=== PATIENT | female | born 1950 | race Caucasian/White ===

== ENCOUNTER 2021-08-07 06:44 | Outpatient (REF) | payer MEDICARE, SELFPAY ==
[2021-08-07 11:29] LABS: MANUAL DIFF FLAG NO
[2021-08-07 11:38] LABS: Basophils Percent Auto 0.5 % (0-2); Eosinophils Absolute Auto 0.3 X10*3/uL (0.0-0.4); Eosinophils Percent Auto 3.4 % (0-4); Hematocrit 42.3 % (37.0-47.0); Hemoglobin 13.7 g/dl (12.0-16.0); Imm Gran Abs Auto 0.04 X10*3/uL (0.00-0.03); Imm Gran Pct Auto 0.5 % (0.0-0.4); Lymphocytes Absolute Auto 1.6 X10*3/uL (1.2-4.9); Lymphocytes Percent Auto 18.2 % (20-40); Mean Corpuscular HGB Conc 32.4 g/dl (31.0-35.0); Mean Corpuscular Volume 92.8 fL (80.0-98.0); Mean Platelet Volume 10.1 fL (9.4-12.3); Monocytes Absolute Auto 0.9 X10*3/uL (0.1-1.2); Monocytes Percent Auto 10.2 % (2-11); Neutrophils Percent Auto 67.2 % (45-73); Platelet Count 319 X10*3/uL (160-400); Red Blood Count 4.56 X10*6/uL (4.20-5.50); White Blood Count 8.9 X10*3/uL (4.8-10.8)
[2021-08-07 11:54] LABS: Alanine Aminotransferase 17 U/L (0-31); Anion Gap 11 (12-20); Aspartate Amino Transferase 17 U/L (5-31); Blood Urea Nitrogen 13 mg/dL (9-16); Calcium 9.6 mg/dL (8.4-10.2); Carbon Dioxide 29 mmol/L (22-29); Chloride 102 mmol/L (96-108); Cholesterol 202 mg/dL; Estimated Glomerular Filt Rate > 60; Glucose Fasting 98 mg/dL (60-99); HDL Cholesterol 45 mg/dL; LDL Cholesterol Calculated 127 mg/dl; Potassium 4.2 mmol/L (3.3-5.1); Sodium 138 mmol/L (135-145); Triglycerides 154 mg/dL
[2021-08-07 12:17] LABS: Vitamin D 25-OH Total 34.7 ng/mL (>30)
[2021-08-07 12:27] LABS: Folate 10.4 ng/mL (> or = 4.0); Vitamin B12 718 pg/mL (200-900)
== END 2021-08-07 06:45 | disposition home or self-care (01) ==
LOC: HO.HMGCLDS 06:44
PROVIDERS: Visit Provider Internal Medicine
DX: Z00.01 Encounter for general adult medical examination with abnormal findings (principal); R53.83 Other fatigue; Z78.0 Asymptomatic menopausal state
CPT/HCPCS: 36415; 80048; 80061; 82306; 82607; 82746; 84443; 84450; 84460; 85025

== ENCOUNTER 2022-01-28 16:31 | Outpatient (REF) | payer MEDICARE, SELFPAY ==
[2022-01-28 17:16] LABS: Anion Gap 18 (12-20); Blood Urea Nitrogen 15 mg/dL (9-16); Calcium 8.8 mg/dL (8.4-10.2); Carbon Dioxide 23 mmol/L (22-29); Chloride 101 mmol/L (96-108); Estimated Glomerular Filt Rate > 60; Glucose Random 77 mg/dL (60-115); Potassium 4.5 mmol/L (3.3-5.1); Sodium 137 mmol/L (135-145)
== END 2022-01-28 16:32 | disposition home or self-care (01) ==
LOC: HO.LNP 16:31
PROVIDERS: Visit Provider Internal Medicine
DX: E87.1 Hypo-osmolality and hyponatremia (principal)
CPT/HCPCS: 80048

== ENCOUNTER 2022-05-28 13:36 | Outpatient (REF) | payer MEDICARE, SELFPAY ==
[2022-05-28 16:21] LABS: MANUAL DIFF FLAG NO
[2022-05-28 16:23] LABS: Basophils Percent Auto 0.3 % (0-2); Eosinophils Absolute Auto 0.2 X10*3/uL (0.0-0.4); Eosinophils Percent Auto 1.9 % (0-4); Hematocrit 41.5 % (37.0-47.0); Hemoglobin 13.5 g/dl (12.0-16.0); Imm Gran Abs Auto 0.04 X10*3/uL (0.00-0.03); Imm Gran Pct Auto 0.4 % (0.0-0.4); Lymphocytes Absolute Auto 2.7 X10*3/uL (1.2-4.9); Lymphocytes Percent Auto 26.8 % (20-40); Mean Corpuscular HGB Conc 32.5 g/dl (31.0-35.0); Mean Corpuscular Hemoglobin 29.2 pg (27.0-33.0); Mean Corpuscular Volume 89.6 fL (80.0-98.0); Monocytes Absolute Auto 1.3 X10*3/uL (0.1-1.2); Monocytes Percent Auto 12.4 % (2-11); Neutrophils Absolute Auto 5.9 x10*3/uL (2.0-8.3); Neutrophils Percent Auto 58.2 % (45-73); Platelet Count 421 X10*3/uL (160-400); Red Blood Count 4.63 X10*6/uL (4.20-5.50); Red Cell Distribution Width 13.3 % (11.0-16.0); White Blood Count 10.1 X10*3/uL (4.8-10.8)
== END 2022-05-28 13:37 | disposition home or self-care (01) ==
LOC: HO.HMGCX 13:36
PROVIDERS: PCP Internal Medicine; Visit Provider Internal Medicine
DX: R05.3 Chronic cough (principal)
CPT/HCPCS: 36415; 71046; 85025

== ENCOUNTER 2022-08-10 12:18 | Outpatient (AMB) | payer MEDICARE, SELFPAY ==
--- NOTE | 2022-08-10 12:32 | AM.OFFVISMDC ---
Intake Vital Signs 08/10/22 12:34 Height 5 ft 5 in Weight 187 lb BMI 31.1 BP 124/80 Blood Pressure Location Lt brachial Position Sitting Pulse 86 Pulse Source Pulse Oximeter Pulse Oximetry (%) 97 Oxygen Delivery Method Room Air Intake Visit Reasons: ARIELLE G0438 04/06/2016 Intake Note: Pt is here today for her AWV Allergies No Known Allergies Allergy (Verified 08/10/22 12:34) Medication List - Last Reconciled 08/10/22 by Kaley Vasquez MD benzonatate 200 mg PO BID PRN bupropion HCl 75 mg PO QAM cholecalciferol (vitamin D3) 50 mcg PO DAILY fluticasone propionate 50 mcg/actuation 1 spray intranasal BID levocetirizine 5 mg PO QPM PRN lorazepam 0.5 mg PO DAILY PRN melatonin 10 mg PO BEDTIME PRN venlafaxine ER 75 mg PO DAILY Patient : No Do you need a note to return to daycare/school/sports/work: No HPI AWV G0438 04/06/2016 HPI Details IPPE/AWV ? year old presents for her ? Annual Wellness Visit, initial visit.? Medical / Social History Reviewed? Past Medical History ?Yes . ? [place] of Care / Care Team list updated ?Yes . ? Surgical/Hospitalization History ?Yes . ? Current Medications (including OTC and supplements) ?Yes . ? Family History ?Yes . ? Tobacco Control form ?Yes . ? AUDIT-C (Alcohol use) form ?Yes . ? Illicit drug use in Social History ?Yes . ? Current diagnosis of depression? ?No ? Appropriate PHQ2/PHQ9 completed ?Yes . ? Data entered by ?Solar Lab Technician and reviewed by provider ? Fall Risk ? Fall History? Have you had any falls with injury in the past year? ?No . ? Have you had two or more falls in the past year? ?No . ? Fall Risk Assessment: ?No falls in the past year . ? HRA filled out by the patient, reviewed by Provider and scanned. ? IPPE/AWV ? Balance? Romberg ?Yes . ? Tandem walk ?Yes . ? Walk and Turn ?Yes . ? Rise from sit to stand ?Yes . ?Vision? Corrective lens ?Yes ? Vision screen ? Up-to-date, has an appointment Dr. Bledsoe 10/14/2020 for her vision screening and glaucoma screening ?Hearing? Whisper test ?pass . ?Written Plan?Completed. See Patient Documents.? PFSH Medical History Anxiety and depression DUB (dysfunctional uterine bleeding) Mild cognitive impairment Psychogenic polydipsia Smoker unmotivated to quit Surgical History History of carpal tunnel release of both wrists History of partial hysterectomy Family History (Updated 08/10/22 @ 12:51 by Maria Victoria Myers CMA) Other Adopted Social History Housing: Condominium Patient Tobacco Use Status: Former Tobacco user Cigarette Packs Per Day: 0.5 Cigarettes Per Day: 10 e-Cigarette/Vaping Use: Never Used Patient : No service: No Current occupational status: retired Cognitive needs: No Hearing needs: No Vision needs: Yes Questionnaire Medicare Wellness Checkup [age] What gender do you identify with?: female During the past 4 weeks, how much have you been bothered by emotional problems such as feeling anxious, depressed, irritable, sad or downhearted, and blue?: not at all During the past 4 weeks, has your physical & emotional health limited your social activities with family, friends, neighbors, or groups?: not at all During the past 4 weeks, how much bodily pain have you generally had?: mild pain During the past 4 weeks, was someone available to help you if you needed & wanted help?: no, not at all During the past 4 weeks, what was the hardest physical activity you could do for at least 2 minutes?: moderate Can you get to places out of walking distance without help? (For eg., can you travel alone on buses, taxis or drive your car?): Yes Can you go shopping for groceries or clothes without someone's help?: Yes Can you prepare your own meals?: Yes Can you do your housework without help?: Yes Because of any health problems, do you need the help of another person with your personal care needs such as eating, bathing, dressing or getting around the house?: No Can you handle your own money without help?: Yes During the past 4 weeks, how would you rate your health in general?: good During the past 4 weeks how have things been going for you?: pretty well Are you having difficulties driving your car?: no Do you always fasten your seat belt when you are in a car?: yes, usually During past 4 weeks, have you been bothered by the following: never: Teeth or denture problems? and Problems using the telephone?, seldom: Falling or dizzy when standing up, Sexual problems? and Trouble eating well? and sometimes: Tiredness or fatigue? Have you fallen 2 or more times in the past year?: No Are you afraid of falling?: No Are you a smoker?: yes, and I might quit During the past 4 weeks, how many drinks of wine, beer, or other alcoholic beverages did you have?: no alcohol at all Do you exercise for about 20 minutes 3 or more times a week?: no, I usually do not exercise this much Have you been given information to help with the following?: yes: Keeping track of your medications? and no: Hazards in your house that might hurt you? How often do you have trouble taking medicines the way you have been told to take them?: I always take medicine as prescribed How confident are you that you can control & manage most of your health problems?: very confident What is your race?: White Activity of Daily Living Bathing - sponge bath, tub bath or shower: receives no assistance (gets in/out by self, if usual bathing means Dressing - getting clothes from closets & drawers, including inner/outer garments & fasteners.: gets clothes & gets completely dressed without help Toileting - going to the 'toilet room' for urine/bowel elimination & cleaning self/arranging clothes: goes to toilet room, cleans self, arranges clothes without help Transfer: moves in & out of bed and chair without help (may use support object) Continence: has occasional 'accidents' Feeding: feeds self without help Total Score: 0 Information obtained from: patient Using telephone: independent Traveling: independent Shopping: independent Preparing meals: independent Housework: independent Taking medicine: independent Managing money: independent PHQ-9 Over the last 2 weeks, how often have you been bothered by any of the following problems? 1. Little interest or pleasure in doing things: not at all 2. Feeling down, depressed, or hopeless: not at all 3. Trouble falling or staying asleep, or sleeping too much: not at all 4. Feeling tired or having little energy: not at all 5. Poor appetite or overeating: not at all 6. Feeling bad about yourself - or that you are a failure or have let yourself or your family down: not at all 7. Trouble concentrating on things, such as reading the newspaper or watching television: not at all 8. Moving or speaking so slowly that other people could have noticed. Or the opposite - being so fidgety or restless that you have been moving around a lot more than usual: not at all 9. Thoughts that you would be better off or of hurting yourself in some way: not at all Total score: 0 Depression Screening Interpretation: Negative 93415 - PHQ-9 Billing: Yes Source: Developed by Drs. Lance Cox, Teena Juárez, Kwan Grove and colleagues, with an educational susana from [employer]. Physical Exam Vital Signs: Last Vital Signs Pulse 86 08/10/22 12:34 BP 124/80 08/10/22 12:34 Pulse Ox 97 08/10/22 12:34 Oxygen Delivery Method Room Air 08/10/22 12:34 BMI result Body Mass Index 31.1 Assessment & Plan Assessment & Plan (1) Anxiety and depression: Code(s): F41.9 - Anxiety disorder, unspecified; F32.A - Depression, unspecified (2) Encounter for annual wellness visit (AWV) in Medicare patient: Code(s): Z00.00 - Encounter for general adult medical examination without abnormal findings (3) Advanced directives, counseling/discussion: Code(s): Z71.89 - Other specified counseling Quality Reporting (2019) Depression/Bipolar (159/160/161/177) PHQ-9: Total score: 0 Coding Level of Care Code Medicare First (G0438) Diagnoses Anxiety and depression F41.9; F32.A Encounter for annual wellness visit (AWV) in Medicare patient Z00.00 Advanced directives, counseling/discussion Z71.89
[2022-08-10 12:34] VITALS: BP 124/80; PULSE 86; O2SAT 97; BMI 31.1
[2022-08-10 13:57] VITALS: BMI 31.1
--- NOTE | 2022-08-10 13:57 | AM.OFFVISMDC ---
Intake Vital Signs 08/10/22 12:34 08/10/22 13:57 Height 5 ft 5 in Weight 187 lb BMI 31.1 31.1 BP 124/80 Blood Pressure Location Lt brachial Position Sitting Pulse 86 Pulse Source Pulse Oximeter Pulse Oximetry (%) 97 Oxygen Delivery Method Room Air Intake Visit Reasons: ARIELLE G0438 04/06/2016 Allergies No Known Allergies Allergy (Verified 02/10/23 16:37) Medication List - Last Reconciled 08/10/22 by Kaley Vasquez MD benzonatate 200 mg PO BID PRN bupropion HCl 75 mg PO QAM cholecalciferol (vitamin D3) 50 mcg PO DAILY fluticasone propionate 50 mcg/actuation 1 spray intranasal BID levocetirizine 5 mg PO QPM PRN lorazepam 0.5 mg PO DAILY PRN melatonin 10 mg PO BEDTIME PRN venlafaxine ER 75 mg PO DAILY HPI AWV G0438 04/06/2016 HPI Details AWV ?72 year old lady with history of anxiety depression, followed by Maycol Colon for presents for her ? Annual Wellness Visit, initial visit.? She is overdue for her screening mammogram, last done 01/12/2021, states that he does have an appointment for her screening mammogram tomorrow at the [facility]. She also states that she has had several bone density scan done in [place], will request copies of results. She has never had a screening colonoscopy, done not interested in getting the procedure but is willing to do the Cologuard testing. She will check with her insurance to see if covered and will let me know. She is up-to-date with her fasting lipid panel check, done 08/07/2021 with normal findings and had a normal fasting blood sugar done 01/28/2022. She has had her to COVID vaccine but does not want to get a COVID booster, up-to-date with her flu shot, had her Prevnar 13 but had her Pneumovax 23 before she was 65 years old, due for Prevnar 20. She has had the old shingles vaccine, reminded to get the new Shingrix vaccine given at the pharmacy. ? Medical / Social History Reviewed? Past Medical History ?Yes . ? [place] of Care / Care Team list updated ?Yes . ? Surgical/Hospitalization History ?Yes . ? Current Medications (including OTC and supplements) ?Yes . ? Family History ?Yes . ? Tobacco Control form ?Yes . ? AUDIT-C (Alcohol use) form ?Yes . ? Illicit drug use in Social History ?Yes . ? Current diagnosis of depression? ?yes, followed by Maycol Colon ? Appropriate PHQ2/PHQ9 completed ?Yes . ? Data entered by ?Stonecutter Apprentice Hand and reviewed by provider ? Fall Risk ? Fall History? Have you had any falls with injury in the past year? ?No . ? Have you had two or more falls in the past year? ?No . ? Fall Risk Assessment: ?No falls in the past year . ? HRA filled out by the patient, reviewed by Provider and scanned. ?? AWV ? Balance? Romberg ?Yes . ? Tandem walk ?Yes . ? Walk and Turn ?Yes . ? Rise from sit to stand ?Yes . ?Vision? Corrective lens ?Yes ? Vision screen ? 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 ?Hearing? Whisper test ?pass . ?Written Plan?Completed. See Patient Documents.? [facility] Medical History History of COVID-19 Mild cognitive impairment Psychogenic polydipsia Anxiety and depression Smoker unmotivated to quit DUB (dysfunctional uterine bleeding) Surgical History History of carpal tunnel release of both wrists History of partial hysterectomy Family History Other Adopted Social History Housing: Condominium Patient Tobacco Use Status: Former Tobacco user Cigarette Packs Per Day: 0.5 Cigarettes Per Day: 10 e-Cigarette/Vaping Use: Never Used service: No Current occupational status: retired Cognitive needs: No Hearing needs: No Vision needs: Yes Questionnaire Mini Mental State Exam (MMSE) Orientation What is the (year) (season) (date) (day) (month)?: year, season (winter), date (08/10/22), day and month (august) Where are we (state) (county) (town or city) (hospital) (floor)?: state ([place]), county ([place]), town or city ([place]) and hospital/clinic ([facility]) Score Score: 9 Activity of Daily Living Bathing - sponge bath, tub bath or shower: receives no assistance (gets in/out by self, if usual bathing means Dressing - getting clothes from closets & drawers, including inner/outer garments & fasteners.: gets clothes & gets completely dressed without help Toileting - going to the 'toilet room' for urine/bowel elimination & cleaning self/arranging clothes: goes to toilet room, cleans self, arranges clothes without help Transfer: moves in & out of bed and chair without help (may use support object) Continence: has occasional 'accidents' Feeding: feeds self without help Total Score: 0 Information obtained from: patient Using telephone: independent Traveling: independent Shopping: independent Preparing meals: independent Housework: independent Taking medicine: independent Managing money: independent PHQ-9 Over the last 2 weeks, how often have you been bothered by any of the following problems? 1. Little interest or pleasure in doing things: not at all 2. Feeling down, depressed, or hopeless: not at all 3. Trouble falling or staying asleep, or sleeping too much: not at all 4. Feeling tired or having little energy: not at all 5. Poor appetite or overeating: not at all 6. Feeling bad about yourself - or that you are a failure or have let yourself or your family down: not at all 7. Trouble concentrating on things, such as reading the newspaper or watching television: not at all 8. Moving or speaking so slowly that other people could have noticed. Or the opposite - being so fidgety or restless that you have been moving around a lot more than usual: not at all 9. Thoughts that you would be better off or of hurting yourself in some way: not at all Total score: 0 Depression Screening Interpretation: Negative 27517 - PHQ-9 Billing: Yes Source: Developed by Drs. Lance Cox, Teena Juárez, [place]wan [place] and colleagues, with an educational susana from [employer]. Physical Exam Vital Signs: Last Vital Signs Pulse 86 08/10/22 12:34 BP 124/80 08/10/22 12:34 Pulse Ox 97 08/10/22 12:34 Oxygen Delivery Method Room Air 08/10/22 12:34 BMI result Body Mass Index 31.1 Immunizations pneumoc 20-sascha conj-dip cr(PF) 0.5 mL IM syringe Performing Provider: Kaley Vasquez MD Performing [facility] [facility] Administered by: Maria Victoria Myers CMA on 08/10/22 13:57 Dose Route Admin Location Dispensed Lot Number Expiration Date NDC Director Funeral 0.5 mL IM Right Deltoid 0.5 mL [id number] 10/04/23 6345-1410-12 [employer] [place]/[employer]IG [employer] VIS Given Date VIS Provided VIS Publication Date 08/10/22 Single Vaccine 21 Eligibility Eligibility Date Funding Source Not VFC Eligible 08/10/22 Private Assessment & Plan Assessment & Plan (1) Medicare annual wellness visit, initial: Code(s): Z00.00 - Encounter for general adult medical examination without abnormal findings Plan: Medical wellness checklist reviewed, updated and discussed with patient, copy given Prevnar 20 given today, reminded to get her COVID booster and her yearly flu shot later this year as well as her shingles vaccination. (2) Anxiety and depression: Code(s): F41.9 - Anxiety disorder, unspecified; F32.A - Depression, unspecified Plan: Currently on venlafaxine ER, followed by Maycol Colon Orders: Orders Pneumococcal 20 Immunization 08/10/22 Z23 - Encounter for immunization Quality Reporting (2019) Depression/Bipolar (159/160/161/177) PHQ-9: Total score: 0 Coding Level of Care Code Medicare First (G0438) Diagnoses Medicare annual wellness visit, initial Z00.00 Anxiety and depression F41.9; F32.A CPT Codes Advance Care Planning - Time spent: 16-45 minutes ([id number]) Advance Care Planning Advance Care Planning discussion: Completed/Scanned Date of discussion: 08/10/22 Who was present: Patient Forms completed: MOLST Time spent: 16-45 minutes Actual minutes spent: 16
== END 2022-08-10 13:56 | disposition home or self-care (01) ==
LOC: HO.HMGC 12:18
PROVIDERS: PCP Internal Medicine; Visit Provider Internal Medicine
DX: Z00.00 Encounter for general adult medical examination without abnormal findings (principal); F41.9 Anxiety disorder, unspecified; F32.A Depression, unspecified; Z23 Encounter for immunization
CPT/HCPCS: 90471; 90677; 99497; G0438

== ENCOUNTER 2023-02-10 15:43 | Outpatient (AMB) | payer MEDICARE, SELFPAY ==
--- NOTE | 2023-02-10 15:56 | A.OFFPC_ITS ---
Vital Signs 02/10/23 16:01 Height 5 ft 5 in Weight 185 lb BMI 30.8 BP 110/64 Blood Pressure Location Rt brachial Position Sitting Pulse 99 Pulse Source Pulse Oximeter Pulse Oximetry (%) 95 Oxygen Delivery Method Room Air Intake Visit Reasons: flem coming up while eating/going on 2+ months Intake Note: Pt is here today c/o producing phelgm while eating Allergies No Known Allergies Allergy (Verified 02/10/23 16:37) Medication List - Last Reconciled 02/10/23 by Kaley Vasquez MD cholecalciferol (vitamin D3) 50 mcg PO DAILY venlafaxine ER 75 mg PO DAILY Tobacco use date assessed: 02/10/23 Last assessed Fall Risk: 02/10/23 Dental Screening Dental Screen Date: 02/10/23 HPI flem coming up while eating/going on 2+ months HPI Details 72-year-old lady with anxiety depression currently on venlafaxine, sees Psychiatry, stable and controlled on present medication, here today complaining of excessive phlegm buildup. Patient states that she always has to expect rate clear phlegm, worse after eating and in the morning when she wakes up, present now for the last 2 weeks. Denies any cough, no nasal congestion, no postnasal drainage or rhinorrhea, no heartburn symptoms. [facility] Medical History History of COVID-19 Mild cognitive impairment Psychogenic polydipsia Anxiety and depression Smoker unmotivated to quit DUB (dysfunctional uterine bleeding) Surgical History History of carpal tunnel release of both wrists History of partial hysterectomy Family History Other Adopted Social History Housing: Condominium Patient Tobacco Use Status: Former Tobacco user Cigarette Packs Per Day: 0.5 Cigarettes Per Day: 10 e-Cigarette/Vaping Use: Never Used service: No Current occupational status: retired Cognitive needs: No Hearing needs: No Vision needs: Yes Questionnaire PHQ-9 Over the last 2 weeks, how often have you been bothered by any of the following problems? 1. Little interest or pleasure in doing things: not at all 2. Feeling down, depressed, or hopeless: not at all 3. Trouble falling or staying asleep, or sleeping too much: not at all 4. Feeling tired or having little energy: not at all 5. Poor appetite or overeating: not at all 6. Feeling bad about yourself - or that you are a failure or have let yourself or your family down: not at all 7. Trouble concentrating on things, such as reading the newspaper or watching television: not at all 8. Moving or speaking so slowly that other people could have noticed. Or the opposite - being so fidgety or restless that you have been moving around a lot more than usual: not at all 9. Thoughts that you would be better off or of hurting yourself in some way: not at all Total score: 0 Depression Screening Interpretation: Negative 83112 - PHQ-9 Billing: Yes Source: Developed by Drs. Lance Cox, Teena Juárez, Kwan Grove and colleagues, with an educational susana from [employer]. Thrive Questionnaire Date Thrive assessed: 02/10/23 I am a: Patient What is your living situation today?: I have a steady place to live Within the past 12 months, did the food you bought not last and you didn't have the money to get more?: Never true Within the past 12 months, did you worry whether your food would run out before you got money to buy more?: Never true Do you have trouble paying for medicines?: No Do you have trouble getting transportation to medical appointments?: No Do you have trouble paying your heating and electricity bill?: No Do you have trouble taking care of your child, family member or friend?: No Do you have trouble with day-to-day activities such as bathing, preparing meals, shopping, managing finances, etc.?: No Are you currently unemployed and looking for a job?: No Are you interested in more education?: No AUDIT C Alcohol Use Questionnaire (AUDIT-C) 1. How often do you have a drink containing alcohol?: Never Total Score: 0 LEONARDO-7 AMB Questionnaire LEONARDO-7 Date LEONARDO - 7 assessed: 02/10/23 Feeling nervous, anxious, or on edge: 0 = Not at all Not being able to stop or control worryin = Not at all Worrying too much about different things: 0 = Not at all Trouble relaxin = Not at all Being so restless that it is hard to sit still: 0 = Not at all Becoming easily annoyed or irritable: 0 = Not at all Feeling afraid as if something awful might happen: 0 = Not at all Total LEONARDO-7 score (0-4 normal; 5-9 mild; 10-14 moderate; 15-21 severe): 0 Source: Developed by Drs. Lance Cox, Teena Juárez, Kwan [place] and colleagues, with an educational susana from [employer]. LEONARDO-7 Assessment Billing LEONARDO-7 Assessment Tool: LEONARDO-7 Assessment 82320 Review of Systems Const All systems reviewed & are unremarkable except as noted in HPI and below Physical exam (Primary Care) Vital Signs: Last Vital Signs Pulse 99 02/10/23 16:01 BP 110/64 02/10/23 16:01 Pulse Ox 95 02/10/23 16:01 Oxygen Delivery Method Room Air 02/10/23 16:01 BMI result Body Mass Index 30.8 Tobacco/Smoking Status: Tobacco use Status Tobacco use date assessed 02/10/23 02/10/23 16:05 Patient Tobacco Use Status Former Tobacco user 02/10/23 16:05 e-Cigarette/Vaping Use Never Used 02/10/23 16:05 PHQ-9: PHQ-9 Score PHQ-9: Total score 0 02/10/23 16:05 Depression Screening Interpretation: Negative Thrive Assessment: Date of Thrive Assessment Date Thrive assessed 02/10/23 02/10/23 16:05 Const Other: Alert oriented x3, no acute distress noted, ambulatory normal gait HENMT Head: Yes normocephalic Ears: external ears normal, TM's normal bilaterally and EAC's normal General nose exam: Normal external nose present, Normal nasal mucous membranes and turbinates present and No nasal discharge present Face and sinus: Yes normal facial exam, Yes sinuses nontender and Yes face symmetric Mouth: Normal oral and palatal mucosa present, tongue normal, oropharynx normal and moist mucous membranes Neck Neck: Yes full ROM, Yes no lymphadenopathy and Yes supple Resp Effort & Inspection: normal respiratory effort and able to speak in complete sentences Auscultation: clear to auscultation bilaterally GI Palpation (GI): Soft to palpation, nontender, no guarding and no masses Auscultation: normal bowel sounds Assessment and Plan Assessment & Plan (1) Phlegm in throat: Code(s): R09.89 - Other specified symptoms and signs involving the circulatory and respiratory systems Plan: Physical exam unremarkable, will try on loratadine 10 mg daily in a.m.. Call after a week If no improvement of symptoms noted Medications: New loratadine 10 mg PO DAILY 30 tabs 0RF Coding Level of Care Code Est Pt Level 3 (50051) Diagnoses Phlegm in throat R09.89 Additional Codes LEONARDO-7 Assessment Billing - LEONARDO-7 Assessment Tool: LEONARDO-7 Assessment 45732 ([id number])
[2023-02-10 16:01] VITALS: BP 110/64; PULSE 99; O2SAT 95; BMI 30.8
== END 2023-02-10 16:49 | disposition home or self-care (01) ==
PROVIDERS: PCP Internal Medicine; Visit Provider Internal Medicine
DX: R09.89 Other specified symptoms and signs involving the circulatory and respiratory systems (principal)
CPT/HCPCS: 99213

== ENCOUNTER 2023-04-12 10:28 | Outpatient (AMB) | payer MEDICARE, SELFPAY ==
[2023-04-12 10:34] VITALS: BP 120/80; PULSE 89; TEMP 36.6; O2SAT 96; BMI 31.8
--- NOTE | 2023-04-12 10:34 | MHC.OFFWIV ---
Intake Vital Signs 04/12/23 10:34 Height 5 ft 5 in Weight 191 lb 6 oz BMI 31.8 BP 120/80 Blood Pressure Location Rt brachial Position Sitting Pulse 89 Pulse Source Pulse Oximeter Temp 97.8 F Temp Source Temporal Artery Scan Pulse Oximetry (%) 96 Oxygen Delivery Method Room Air Intake Visit Reasons: EST/constant flem coming up since january(lobby) Intake Note: pt is here for c/o constant phlem with cough since january Patient Tobacco Use Status: Former Tobacco user Allergies No Known Allergies Allergy (Verified 04/12/23 10:35) Do you need a note to return to daycare/school/sports/work: Yes PFSH Medical History History of COVID-19 Mild cognitive impairment Psychogenic polydipsia Anxiety and depression Smoker unmotivated to quit DUB (dysfunctional uterine bleeding) Surgical History History of carpal tunnel release of both wrists History of partial hysterectomy Family History Other Adopted Social History Housing: Condominium Patient Tobacco Use Status: Former Tobacco user Cigarette Packs Per Day: 0.5 Cigarettes Per Day: 10 e-Cigarette/Vaping Use: Never Used service: No Current occupational status: retired Cognitive needs: No Hearing needs: No Vision needs: Yes Physical Exam Vital Signs: Last Vital Signs Temp 97.8 F 04/12/23 10:34 Pulse 89 04/12/23 10:34 BP 120/80 04/12/23 10:34 Pulse Ox 96 04/12/23 10:34 Oxygen Delivery Method Room Air 04/12/23 10:34 BMI result Body Mass Index 31.8 Assessment & Plan Assessment & Plan Orders: Orders XR chest 2V Today R05.9 - Cough, unspecified Coding Level of Care Code Est Pt Level 3 (17732)
== END 2023-04-12 11:54 | disposition home or self-care (01) ==
PROVIDERS: PCP Internal Medicine; Visit Provider Internal Medicine
DX: J44.9 Chronic obstructive pulmonary disease, unspecified (principal)
CPT/HCPCS: 99213

== ENCOUNTER 2023-04-12 11:12 | Outpatient (REF) | payer MEDICARE, SELFPAY ==
--- NOTE | ~2023-04-12 | XR_ITS ---
EXAMINATION: XR CHEST 2 VIEW CLINICAL INFORMATION: Cough COMPARISON: 05/28/2022 TECHNIQUE: PA and lateral views of the chest obtained. FINDINGS: The lungs are clear. There are no pleural effusions. The cardiomediastinal silhouette is normal. XR/XR chest 2V IMPRESSION: No acute cardiopulmonary disease.
== END 2023-04-12 11:13 | disposition home or self-care (01) ==
LOC: HO.HMGCX 11:12
PROVIDERS: PCP Internal Medicine; Visit Provider Internal Medicine
DX: R05.9 Cough, unspecified (principal)
CPT/HCPCS: 71046

== ENCOUNTER 2023-05-04 08:40 | Outpatient (AMB) | payer MEDICARE, SELFPAY ==
--- NOTE | 2023-05-04 08:56 | A.OFFPC_ITS ---
Vital Signs 05/04/23 08:59 Height 5 ft 5 in Weight 190 lb 8 oz BMI 31.7 BP 135/86 Blood Pressure Location Lt brachial Position Sitting Pulse 87 Pulse Source Pulse Oximeter Pulse Oximetry (%) 96 Oxygen Delivery Method Room Air Intake Visit Reasons: f/u from [place] regarding continue producing phelgm Intake Note: pt was seen in the walk-in and is still producing phlegm pt says this has been for months Allergies No Known Allergies Allergy (Verified 05/05/23 00:34) Medication List - Last Reconciled 05/05/23 by Kaley Vasquez MD cholecalciferol (vitamin D3) 50 mcg PO DAILY venlafaxine ER 75 mg PO DAILY Tobacco use date assessed: 05/04/23 Fall risk assessment: No Falls in past year Last assessed Fall Risk: 05/04/23 Dental Screening Dental Screen Date: 05/04/23 Did you have a dental visit in the last 12 months?: Yes Did you have a dental problem in the last 6 months where you did not have access to dental care?: No Was dental information given to patient?: Patient has dentist HPI f/u from [place] regarding continue producing phelgm HPI Details 73-year-old lady here today complaining of excessive phlegm production. This has been ongoing now for the last 3 months, without any accompanying fever, no cough no shortness of breath, no sore throat no nasal congestion, no postnasal drip reported. He was seen at the walk-in clinic a week ago for the same complaint and was advised to take Mucinex which after afforded no improvement. She also has tried taking loratadine with no relief. X-ray of the chest was obtained and labs were drawn all of which came back unremarkable. [facility] Medical History History of COVID-19 Mild cognitive impairment Psychogenic polydipsia Anxiety and depression Smoker unmotivated to quit DUB (dysfunctional uterine bleeding) Surgical History History of carpal tunnel release of both wrists History of partial hysterectomy Family History Other Adopted Social History [facility] Patient Tobacco Use Status: Current everyday Tobacco user Cigarette Packs Per Day: 1 Cigarettes Per Day: 20 e-Cigarette/Vaping Use: Never Used Second Hand Smoke Exposure: Yes service: No Current occupational status: retired Cognitive needs: No Hearing needs: No Vision needs: Yes Questionnaire PHQ-9 Over the last 2 weeks, how often have you been bothered by any of the following problems? Depression Screening Interpretation: Negative Depression Screening Done: Yes Source: Developed by Drs. Lance Cox, Teena Juárez, Kwan Grove and colleagues, with an educational susana from [employer]. Thrive Questionnaire Date Thrive assessed: 02/10/23 LEONARDO-7 AMB Questionnaire LEONARDO-7 Date LEONARDO - 7 assessed: 02/10/23 Source: Developed by Drs. Lance Cox, Teena Juárez, Kwan Grove and colleagues, with an educational susana from [employer]. Review of Systems Const Denies body aches, Denies fever(s), Denies headache(s) and Denies weakness ENT Reports as per HPI, Denies dizziness, Denies headache(s) and Denies sore throat Card Denies chest pain, Denies lightheadedness, Denies palpitations and Denies dyspnea Resp Denies chest congestion, Denies cough, Denies dyspnea and Denies wheezing GI Denies abdominal pain, Denies change in bowel habits and Denies heartburn Neuro Denies dizziness, Denies headache(s) and Denies weakness Endo Denies polydipsia, Denies polyuria and Denies palpitations Aller/Immun Denies seasonal rhinorrhea and Denies wheezing Physical exam (Primary Care) Vital Signs: Last Vital Signs Pulse 87 05/04/23 08:59 BP 135/86 05/04/23 08:59 Pulse Ox 96 05/04/23 08:59 Oxygen Delivery Method Room Air 05/04/23 08:59 BMI result Body Mass Index 31.7 Tobacco/Smoking Status: Tobacco use Status Tobacco use date assessed 05/04/23 05/04/23 09:04 Patient Tobacco Use Status Current everyday Tobacco 05/04/23 09:04 e-Cigarette/Vaping Use Never Used 05/04/23 08:58 Depression Screening Interpretation: Negative Thrive Assessment: Date of Thrive Assessment Date Thrive assessed 02/10/23 05/04/23 08:58 Const Other: Alert oriented x3, no acute distress noted, ambulatory normal gait HENMT Ears: external ears normal, TM's normal bilaterally and EAC's normal General nose exam: Normal external nose present, Normal nasal mucous membranes and turbinates present and No nasal discharge present Face and sinus: Yes normal facial exam, Yes sinuses nontender and Yes face symmetric Mouth: Normal oral and palatal mucosa present, tongue normal, oropharynx normal and moist mucous membranes Neck Neck: Yes full ROM, Yes no lymphadenopathy and Yes supple Resp Effort & Inspection: normal respiratory effort and able to speak in complete sentences Auscultation: clear to auscultation bilaterally GI Palpation (GI): Soft to palpation, nontender, no guarding and no masses Auscultation: normal bowel sounds Assessment and Plan Assessment & Plan (1) Excessive salivation: Code(s): K11.7 - Disturbances of salivary secretion Plan: No relief with taking Claritin, Mucinex, advised to try doing Biotene mouthwash, call if no improvement of symptoms noted and will refer to market researcher for further evaluation and manage Coding Level of Care Code Est Pt Level 3 (56916) Diagnoses Excessive salivation K11.7
[2023-05-04 08:59] VITALS: BP 135/86; PULSE 87; O2SAT 96; BMI 31.7
== END 2023-05-04 09:48 | disposition home or self-care (01) ==
PROVIDERS: PCP Internal Medicine; Visit Provider Internal Medicine
DX: K11.7 Disturbances of salivary secretion (principal)
CPT/HCPCS: 99213

== ENCOUNTER 2023-06-15 15:57 | Outpatient (AMB) | payer MEDICARE, SELFPAY ==
--- NOTE | 2023-06-15 15:53 | A.OFFPC_ITS ---
Intake Visit Reasons: [phone], , stomach concerns due to mucus Intake Note: Pt says she her mucus is now upsetting her stomach pt says this has been going on since 02/26 Allergies No Known Allergies Allergy (Verified 06/15/23 16:07) Medication List - Last Reconciled 06/15/23 by Kaley Vasquez MD cholecalciferol (vitamin D3) 50 mcg PO DAILY simethicone (Mylanta Gas) 125 mg PO TID PRN venlafaxine ER 75 mg PO DAILY Tobacco use date assessed: 06/15/23 Fall risk assessment: No Falls in past year Last assessed Fall Risk: 06/15/23 Dental Screening Dental Screen Date: 06/15/23 Did you have a dental visit in the last 12 months?: Yes Did you have a dental problem in the last 6 months where you did not have access to dental care?: No Was dental information given to patient?: Patient has dentist HPI stomach concerns due to mucus HPI Details 73-year-old patient seen today via tele ealt, complaining of bringing up a lot of mucus in her throat, usually after eating. Also has been having occasional nasal congestion and postnasal drainage. Has tried [id number] antihistamines, saline nasal wash , Mylanta gas tab, which has not afforded any resolution of her above symptoms. Recent chest x-ray showed normal finding. Referred her to ENT but states that she cannot be seen until September of this year. Now complaining of dyspepsia. However continues to smoke cigarettes, unmotivated to quit at present time. [facility] Medical History (Updated 06/15/23 @ 16:23 by Kaley Vasquez MD) Phlegm in throat Dyspepsia History of COVID-19 Mild cognitive impairment Psychogenic polydipsia Anxiety and depression Smoker unmotivated to quit DUB (dysfunctional uterine bleeding) Surgical History History of carpal tunnel release of both wrists History of partial hysterectomy Family History Other Adopted Social History Housing: Condominium Patient Tobacco Use Status: Current everyday Tobacco user Cigarette Packs Per Day: 1 Cigarettes Per Day: 20 e-Cigarette/Vaping Use: Never Used Second Hand Smoke Exposure: Yes service: No Current occupational status: retired Cognitive needs: No Hearing needs: No Vision needs: Yes Questionnaire Thrive Questionnaire Date Thrive assessed: 02/10/23 LEONARDO-7 AMB Questionnaire LEONARDO-7 Date LEONARDO - 7 assessed: 02/10/23 Source: Developed by Drs. Lance Cox, Teena Juárez, [place] and colleagues, with an educational susana from [employer]. Review of Systems Const Denies body aches, Denies chills, Denies fever(s), Denies headache(s) and Denies poor appetite ENT Denies dysphagia, Denies dizziness, Denies dry mouth, Denies headache(s), Denies hoarseness, Denies epistaxis, Denies disequilibrium, Denies sinus pressure and Denies sore throat Card Denies chest pain, Denies chest pain with activity, Denies irregular heart rhythm, Denies dyspnea and Denies dyspnea on exertion Resp Reports as per HPI, Denies cough, Denies dyspnea, Denies dyspnea on exertion and Denies wheezing GI Reports as per HPI, Denies bloating, Denies dysphagia and Denies nausea Neuro Denies dizziness, Denies headache(s) and Denies disequilibrium Aller/Immun Denies wheezing Physical exam (Primary Care) Tobacco/Smoking Status: Tobacco use Status Tobacco use date assessed 06/15/23 06/15/23 15:56 Patient Tobacco Use Status Current everyday Tobacco 06/15/23 15:56 e-Cigarette/Vaping Use Never Used 06/15/23 15:56 Thrive Assessment: Date of Thrive Assessment Date Thrive assessed 02/10/23 06/15/23 15:56 Telehealth Telehealth Location of provider rendering services: practice address Location of patient: address on file Patient Identification confirmed using: Name, : Yes Telehealth method: video Patient verbally consented to treatment: Yes Patient verbally consented to billing insurance company: Yes Patient informed of any privacy concerns related to visit: Yes Minutes spent on Phone/Video with Pt.: 15 Assessment and Plan Assessment & Plan (1) Dyspepsia: Code(s): R10.13 - Epigastric pain Plan: Prescription sent for famotidine 20 mg per tablet to take 1 tablet once a day at least an hour before eating, 30 tablets with 1 refill (2) Phlegm in throat: Code(s): R09.89 - Other specified symptoms and signs involving the circulatory and respiratory systems Plan: Prescription sent for ipratropium bromide nasal spray, 2 sprays intranasal once or twice a day as needed for allergy symptoms, postnasal drainage. Pulmonary consult requested (3) Smoker unmotivated to quit: Code(s): F17.200 - Nicotine dependence, unspecified, uncomplicated Plan: Patient strongly advised to stop smoking, as smoking damages blood vessels, degenerative of joints and spine, damage to lungs and heart., predisposes to developing certain cancers like lung, breast, bladder, colon. Recommended to try decreasing cigarette use by 1-2 cigarettes a day. Advised to monitor what triggers are for smoking so that this can be discussed on the next office visit. We can discuss different options to quit smoking when ready. Orders: Referrals Pulmonary Medicine Referral R09.89 - Other specified symptoms and signs involving the circulatory and respiratory systems Medications: New famotidine (Acid Greenhouse Superintendent (famotidine)) Take at least 1 hour before eating once a day 20 mg PO DAILY 30 tabs 1RF ipratropium bromide administer into each nostril 2 sprays intranasal BID PRN 30 mL 0RF allergy symptoms Coding Level of Care Code Tele Est Pt Level 3 (65259) Diagnoses Dyspepsia R10.13 Phlegm in throat R09.89 Smoker unmotivated to quit F17.200
== END 2023-06-15 16:49 | disposition home or self-care (01) ==
LOC: HO.HMGC 15:57
PROVIDERS: PCP Internal Medicine; Visit Provider Internal Medicine
DX: R10.13 Epigastric pain (principal); R09.89 Other specified symptoms and signs involving the circulatory and respiratory systems; F17.210 Nicotine dependence, cigarettes, uncomplicated
CPT/HCPCS: 99213

== ENCOUNTER 2024-01-23 14:31 | Outpatient (AMB) | payer MEDICARE, SELFPAY ==
[2024-01-23 14:49] VITALS: PULSE 89; O2SAT 96; BMI 29.1
--- NOTE | 2024-01-23 14:49 | A.OFFVIS_ITS ---
Vital Signs 01/23/24 14:49 Height 5 ft 5 in Weight 175 lb BMI 29.1 Pulse 89 Pulse Source Pulse Oximeter Pulse Oximetry (%) 96 Oxygen Delivery Method Room Air Intake Visit Reasons: Cough [employer] Required: No Allergies No Known Allergies Allergy (Verified 01/23/24 14:50) HPI Comments Details: the patient is here for pulmonary evaluation. The patient is a 73 year woman presenting with a cough and chest congestion now for about a year. She is an active smoker. She has been smoking since she was 40. She smokes about a pack a day. Her cough has been pretty consistent with phlegm. Sometimes chokes her up. At times just brings it up she does not have to cough it. It is moderate severity. She has been evaluated in the past by ENT. There was a question of a CSF leak and she underwent a full workup for that and was negative per report. The patient also had a chest x-ray which I personally reviewed from 04/25/2023. Appears to have some increased airway thickening in the right lower lobe bringing up the possibility of bronchitis. No additional imaging studies available. The patient also wondering about allergies. She indeed has nasal congestion has tried nasal sprays without any significant improvement. Of ours smoking she enjoys smoking and she is not completely ready to quit although she knows that is partly affecting health at this point she is now more motivated in considering the possibility of quitting. I did give her information about the smoking cessation program at [facility]. She will call them. In the meantime lung cancer screening program will be warranted as well [facility] Medical History (Updated 01/23/24 @ 15:24 by Zay Kruse MD) Smoker Chronic cough Phlegm in throat Dyspepsia History of COVID-19 Mild cognitive impairment Psychogenic polydipsia Anxiety and depression Smoker unmotivated to quit DUB (dysfunctional uterine bleeding) Surgical History History of carpal tunnel release of both wrists History of partial hysterectomy Family History Other Adopted Social History Housing: Condominium Patient Tobacco Use Status: Current everyday Tobacco user Cigarette Packs Per Day: 1 Cigarettes Per Day: 20 e-Cigarette/Vaping Use: Never Used Second Hand Smoke Exposure: Yes service: No Current occupational status: retired Cognitive needs: No Hearing needs: No Vision needs: Yes Review of Systems Const Denies fever(s) Eyes Reports no additional complaints ENT Reports nasal congestion, Reports nasal discharge and Reports post nasal drip Card Denies chest pain Resp Reports chest congestion, Reports cough and Denies wheezing GI Reports no additional complaints Musc Reports no additional complaints Skin/Breast Denies rash John/Lymph Reports no additional complaints Aller/Immun Denies wheezing Physical Exam Vital Signs: Last Vital Signs Pulse 89 01/23/24 14:49 Pulse Ox 96 01/23/24 14:49 Oxygen Delivery Method Room Air 01/23/24 14:49 BMI result Body Mass Index 29.1 Const General: comfortable HEENT General nose exam: Abnormal mucous membranes and turbinates present boggy Neck Neck: Yes supple Chest Chest palpation & inspection: normal inspection of the chest Resp Effort & Inspection: normal respiratory effort Auscultation: clear to auscultation bilaterally Cardio Heart sounds: S1 normal heart sound present and S2 normal heart sound present GI Palpation (GI): Soft to palpation Skin General skin exam: no rashes or lesions noted Extrem General: Yes no clubbing, cyanosis or edema Assessment & Plan Assessment & Plan (1) Chronic cough: Code(s): R05.3 - Chronic cough Category: Medical (2) Smoker: Code(s): F17.200 - Nicotine dependence, unspecified, uncomplicated Category: Social Hx Plan bloodwork/allergy testing start Wixela LDCT referral smoking cessation program F/U 6-8 weeks Orders: Orders Complete Blood Count Auto Diff Today R05.3 - Chronic cough, T78.40XA - Allergy, unspecified, initial encounter Immunoglobulins,IgG IgA IgM Today R05.3 - Chronic cough, T78.40XA - Allergy, unspecified, initial encounter Resp Allergy Profile Region I Today R05.3 - Chronic cough, R91.1 - Solitary pulmonary nodule, T78.40XA - Allergy, unspecified, initial encounter Sputum Cult + Gram stain Today R05.3 - Chronic cough Immunoglobulin E Today R05.3 - Chronic cough, T78.40XA - Allergy, unspecified, initial encounter Erythrocyte Sedimentation Rate Today R05.3 - Chronic cough, T78.40XA - Allergy, unspecified, initial encounter Referrals Lung Cancer Screening Referral F17.200 - Nicotine dependence, unspecified, uncomplicated Medications: New fluticasone propion-salmeterol 250-50 mcg/dose (Wixela Inhub) 1 inh inhalation Q12H 60 ea 11RF 30 days Coding Level of Care Code New Pt Level 4 (36250) Diagnoses Chronic cough R05.3 Smoker F17.200 Time Spent (min) 35
== END 2024-01-23 15:27 | disposition home or self-care (01) ==
PROVIDERS: PCP Internal Medicine; Visit Provider Hospitalist
DX: R05.3 Chronic cough (principal); F17.200 Nicotine dependence, unspecified, uncomplicated
CPT/HCPCS: 99204

== ENCOUNTER 2024-01-23 14:31 | Outpatient (REF) | payer MEDICARE, SELFPAY ==
[2024-01-23 16:01] LABS: MANUAL DIFF FLAG NO
[2024-01-23 16:47] LABS: Basophils Percent Auto 0.4 % (0-2); Eosinophils Absolute Auto 0.3 X10*3/uL (0.0-0.4); Eosinophils Percent Auto 2.7 % (0-4); Hematocrit 41.1 % (37.0-47.0); Hemoglobin 13.6 g/dl (12.0-16.0); Imm Gran Abs Auto 0.05 X10*3/uL (0.00-0.03); Imm Gran Pct Auto 0.5 % (0.0-0.4); Lymphocytes Absolute Auto 2.2 X10*3/uL (1.2-4.9); Lymphocytes Percent Auto 22.1 % (20-40); Mean Corpuscular HGB Conc 33.1 g/dl (31.0-35.0); Mean Corpuscular Hemoglobin 30.5 pg (27.0-33.0); Mean Corpuscular Volume 92.2 fL (80.0-98.0); Mean Platelet Volume 9.4 fL (9.4-12.3); Monocytes Percent Auto 9.5 % (2-11); Neutrophils Absolute Auto 6.6 x10*3/uL (2.0-8.3); Neutrophils Percent Auto 64.8 % (45-73); Platelet Count 301 X10*3/uL (160-400); Red Blood Count 4.46 X10*6/uL (4.20-5.50); Red Cell Distribution Width 12.9 % (11.0-16.0); White Blood Count 10.1 X10*3/uL (4.8-10.8)
[2024-01-23 18:12] LABS: Erythrocyte Sedimentation Rate 11 MM/HR (0-20)
[2024-01-24 14:08] LABS: Class Alternaria alternata 0; Class Aspergillus fumigatus 0; Class Bermuda Grass 2; Class Birch 0; Class Cat Dander 3; Class Cladosporium herbarum 0; Class Cockroach 0/1; Class Common Ragweed 3; Class Cottonwood 0; Class Derm. pterony 4; Class Dermatophagoides farinae 4; Class Dog Dander 1; Class Elm 0; Class Maple Box Elder 0; Class Mountain Cedar 0; Class Mouse Urine Protein 0; Class Mugwort 0; Class Oak 0; Class Penicillium crysogenum 0; Class Rough Pigweed 0; Class Sheep Sorrel 0; Class Sycamore 0; Class Timothy Grass 3; Class Walnut Tree 0; Class White Ash 0; Class White Mulberry 0; E001 - IgE Cat Dander 4.52 kU/L; E005 - IgE Dog Dander 0.49 kU/L; E072-IgE Mouse Urine <0.10 kU/L; G002 IgE Bermuda Grass 1.04 kU/L; G006 - IgE Timothy Grass 3.94 kU/L; I006-IgE Cockroach, German 0.12 kU/L; Immunoglobulin E 187 kU/L (<OR=114); M001 IgE Penicillium chrysogen <0.10 kU/L; M002 - IgE Cladosporium herbar <0.10 kU/L; M003 - IgE Aspergillus fumigat <0.10 kU/L; M006 - IgE Alternaria alternat <0.10 kU/L; T001 IgE Maple/Box Elder <0.10 kU/L; T003 IgE Common Silver Birch <0.10 kU/L; T006 - IgE Cedar, Mountain <0.10 kU/L; T007 - IgE Oak, White <0.10 kU/L; T008 IgE Elm, American <0.10 kU/L; T010 - IgE Walnut <0.10 kU/L; T011 - IgE Maple Leaf Sycamore <0.10 kU/L; T014 - IgE Cottonwood <0.10 kU/L; T015 - IgE Ash, White <0.10 kU/L; T070 - IgE White Mulberry <0.10 kU/L; W001 - IgE Ragweed, Short 4.87 kU/L; W006 - IgE Mugwort <0.10 kU/L; W014 IgE Pigweed, Common <0.10 kU/L; W018 IgE Sheep Sorrel <0.10 kU/L
[2024-01-24 14:28] LABS: IgA 236 mg/dL (70-320); IgG 1050 mg/dL (600-1540); IgM 35 mg/dL (50-300)
== END 2024-01-23 14:32 | disposition home or self-care (01) ==
LOC: HO.LAB 14:31
PROVIDERS: PCP Internal Medicine; Visit Provider Hospitalist
DX: T78.40XA Allergy, unspecified, initial encounter (principal); R05.3 Chronic cough; R91.1 Solitary pulmonary nodule; F17.200 Nicotine dependence, unspecified, uncomplicated
CPT/HCPCS: 36415; 82784; 82785; 85025; 85652; 86003; 99202

== ENCOUNTER 2024-01-24 09:54 | Outpatient (REF) | payer MEDICARE, SELFPAY | END 2024-01-24 09:55 | disposition home or self-care (01) | LOC: HO.LAB 09:54 | PROVIDERS: Visit Provider Hospitalist | DX: R05.3 Chronic cough (principal) | CPT/HCPCS: 87070; 87077; 87185; 87205 ==

== ENCOUNTER 2024-02-16 12:51 | Outpatient (AMB) | payer MEDICARE, SELFPAY ==
[2024-02-16 12:58] VITALS: BP 132/70; PULSE 89; O2SAT 97; BMI 29.1
--- NOTE | 2024-02-16 12:58 | MHC.OFFVIS ---
Vital Signs 02/16/24 12:58 Height 5 ft 5 in Weight 175 lb BMI 29.1 BP 132/70 Blood Pressure Location Lt brachial Position Sitting Pulse 89 Pulse Source Pulse Oximeter Pulse Oximetry (%) 97 Oxygen Delivery Method Room Air Intake Visit Reasons: Cough/Labs Follow Up Centrifugal Machine Tender Required: No Allergies No Known Allergies Allergy (Verified 02/16/24 13:01) HPI Comments Details: The patient is a 73 year woman presenting with a cough and chest congestion now for about a year. She is an active smoker. She has been smoking since she was 40. She smokes about a pack a day. Her cough has been pretty consistent with phlegm. Sometimes chokes her up. At times just brings it up she does not have to cough it. It is moderate severity. She has been evaluated in the past by ENT. There was a question of a CSF leak and she underwent a full workup for that and was negative per report. The patient also had a chest x-ray which I personally reviewed from 04/25/2023. Appears to have some increased airway thickening in the right lower lobe bringing up the possibility of bronchitis. No additional imaging studies available. The patient also wondering about allergies. She indeed has nasal congestion has tried nasal sprays without any significant improvement. Of ours smoking she enjoys smoking and she is not completely ready to quit although she knows that is partly affecting health at this point she is now more motivated in considering the possibility of quitting. I did give her information about the smoking cessation program at [facility]. She will call them. In the meantime lung cancer screening program will be warranted as well 02/16/2024 the patient is here for a pulmonary follow-up visit. She is still coughing. At times productive. Moderate severity. She did not get the Wixela inhaler because it was too expensive. She does have a rescue inhaler that she can use as needed. In the meantime she continues to smoke. She knows she needs to quit. She is motivated. She is willing to try the Nicorette gum. He is start cutting down. Also, the patient did have blood work which we did review. The patient does have significant allergies. She has a very high allergy to dust mites. Unfortunately she has [id number] carpeting her condominium. Therefore likely that this is a component of her symptoms. The patient is willing to use an allergy medication this case [place]. I will send to the pharmacy. She can also use [id number] antihistamine therapy. The patient does need to vacuum regularly with a HEPA filter vacuum venetian blind cleaner. And also can consider removing the rugs which also be helpful. The patient will be participating in the lung cancer screening program. She has not gotten a call yet. I did reach out to the program in order for her to do so. Will plan to follow-up sometime in 6-8 months. If the patient has any issues prior to that she will call for an earlier assessment. [facility] Medical History (Updated 02/16/24 @ 14:13 by Lory Juan PA-C) Nicotine dependence, cigarettes, uncomplicated Chronic cough Phlegm in throat Dyspepsia History of COVID-19 Mild cognitive impairment Psychogenic polydipsia Anxiety and depression DUB (dysfunctional uterine bleeding) Surgical History History of carpal tunnel release of both wrists History of partial hysterectomy Family History Other Adopted Social History Housing: Condominium Patient Tobacco Use Status: Current everyday Tobacco user Cigarette Packs Per Day: 1 Cigarettes Per Day: 20 e-Cigarette/Vaping Use: Never Used Second Hand Smoke Exposure: Yes service: No Current occupational status: retired Cognitive needs: No Hearing needs: No Vision needs: Yes Review of Systems Const Denies fever(s) Eyes Reports no additional complaints ENT Reports nasal congestion, Reports nasal discharge and Reports post nasal drip Card Denies chest pain Resp Reports chest congestion, Reports cough and Denies wheezing GI Reports no additional complaints Musc Reports no additional complaints Skin/Breast Denies rash John/Lymph Reports no additional complaints Aller/Immun Denies wheezing Physical Exam Vital Signs: Last Vital Signs Pulse 89 02/16/24 12:58 BP 132/70 02/16/24 12:58 Pulse Ox 97 02/16/24 12:58 Oxygen Delivery Method Room Air 02/16/24 12:58 BMI result Body Mass Index 29.1 Const General: comfortable HEENT General nose exam: Abnormal mucous membranes and turbinates present boggy Neck Neck: Yes supple Chest Chest palpation & inspection: normal inspection of the chest Resp Effort & Inspection: normal respiratory effort Auscultation: clear to auscultation bilaterally Cardio Heart sounds: S1 normal heart sound present and S2 normal heart sound present GI Palpation (GI): Soft to palpation Skin General skin exam: no rashes or lesions noted Extrem General: Yes no clubbing, cyanosis or edema Assessment & Plan Assessment & Plan (1) Chronic cough: Code(s): R05.3 - Chronic cough Category: Medical (2) Smoker: Code(s): F17.200 - Nicotine dependence, unspecified, uncomplicated Category: Social Hx Plan consider Wixela SHOBHA as needed start singulair HEPA filtered vacuum LDCT referral smoking cessation program: nicorette gum as needed F/U 6-8 months Medications: New montelukast (Singulair) 10 mg PO BEDTIME 30 tabs 11RF 30 days J45.909 - Unspecified asthma, uncomplicated nicotine (polacrilex) (Nicorette) 2 mg buccal Q2H 100 ea 3RF 30 days Coding Level of Care Code Est Pt Level 4 (15575) Diagnoses Chronic cough R05.3 Smoker F17.200 Time Spent (min) 16
== END 2024-02-16 13:26 | disposition home or self-care (01) ==
PROVIDERS: PCP Internal Medicine; Visit Provider Hospitalist
DX: R05.3 Chronic cough (principal); F17.200 Nicotine dependence, unspecified, uncomplicated
CPT/HCPCS: 99214

== ENCOUNTER → 2024-02-16 12:51 | Outpatient (BNVA) | payer MEDICARE, SELFPAY | PROVIDERS: PCP Internal Medicine; Visit Provider Hospitalist | DX: R05.3 Chronic cough (principal); F17.210 Nicotine dependence, cigarettes, uncomplicated | CPT/HCPCS: 99212 ==

== ENCOUNTER 2024-04-06 09:42 | Outpatient (AMB) | payer MEDICARE, SELFPAY ==
--- NOTE | 2024-04-06 08:02 | A.OFFVIS_ITS ---
Intake Visit Reasons: Current Smoker Allergies No Known Allergies Allergy (Verified 02/16/24 13:01) HPI HPI Current Smoker: Details: Initial visit for this 73yo smoker with a 30PYH. Patient started smoking at age 40 for 33 years at 1ppd. . Denies marijuana use. Denies second hand smoke exposure. Denies exposure to chemicals or substances like asbestos. . Denies known family history of lung cancer. Adopted - unknown family history. Personal history of skin cancer - right cheondoism. Denies chest CT in last year. . Denies recent travel outside the [place]. Denies recent respiratory illness or recent hospitalization for respiratory i ssues. Admitss testing positive for COVID. Admits receiving COVID Vaccine x 2. . Denies fever, chills, new/worsening cough, hemoptysis, hoarseness or dysphagia. Denies significant chest pain, significant dyspnea or unintentional weight loss. Patient Lung Cancer Screening Questionnaire reviewed with patient by provider. . Shared Decision Making Completed. Patient meets criteria. Discussed in detail with patient, the risk vs benefit of LDCT screening. Patient consents to proceed with scan. Discussed smoking cessation. [facility] Medical History (Updated 04/06/24 @ 09:54 by Lory Juan PA-C) Nicotine dependence, cigarettes, uncomplicated Chronic cough Phlegm in throat Dyspepsia History of COVID-19 Mild cognitive impairment Psychogenic polydipsia Anxiety and depression DUB (dysfunctional uterine bleeding) Surgical History (Updated 04/06/24 @ 10:12 by Lory Juan PA-C) History of excision of lesion History of carpal tunnel release of both wrists History of partial hysterectomy Family History Other Adopted Social History (Updated 04/06/24 @ 09:54 by Lory Juan PA-C) Housing: Condominium Patient Tobacco Use Status: Current everyday Tobacco user Cigarette Packs Per Day: 1 Cigarettes Per Day: 20 Years Smoked: (onset 40yo, 1ppd x 33yrs, 30pyh) e-Cigarette/Vaping Use: Never Used Second Hand Smoke Exposure: Yes service: No Current occupational status: retired Cognitive needs: No Hearing needs: No Vision needs: Yes Assessment & Plan Assessment & Plan (1) Nicotine dependence, cigarettes, uncomplicated: Comment: (onset 40yo, 1ppd x 33yrs, 30pyh) Code(s): F17.210 - Nicotine dependence, cigarettes, uncomplicated Category: Medical Plan: - SDM visit completed today in office. - Patient meets criteria for LDCT for lung cancer screening purposes and is asymptomatic. - Smoking cessation counseling offered. Patients can always call [phone]. - Will arrange for a LDCT scan of the chest for screening purposes at [facility]. - Risks, benefits, and alternatives were discussed in detail and the patient agrees to proceed. - Risks discussed include but are not limited to: radiation exposure, anxiety during testing and while awaiting results, false negatives, false positives and possibility of additional intervention such as further imaging or surgical procedures for benign disease. - Benefits are obviously detection of lung cancer at an early stage which can lead to improved outcomes. - Discussed the importance of screening program compliance with adherence to yearly LDCT scan as scheduled - or sooner interval scans for personalized screening regimen. - Discussed follow up plan. Our office will send a letter discussing results and if needed set up phone call and office visit based on CT findings. - Patient educated on results categorization and the management decisions for suspicious findings potentially found on the screening LDCT scan. Any patient with a Lung RADS score of 3 or 4 will be reviewed by a multidisciplinary team at [facility] to form a plan of action in regards to scan findings. - If further work up is warranted for a suspicious lung finding this will be followed by the Lung Cancer Screening program in conjunction with the Thoracic Surgery Department at [facility]. - A copy of the office note and LDCT will be sent to the patient's PCP - as well as documentation on any associated further plans of care. - Incidental findings on LDCT are the PCP's responsibility. These findings are indicated with an S finding on the LDCT Assessment. A note discussing the findings will be sent to the PCP who is then responsible for further management. - All questions answered.? Coding Level of Care Code Lung Cancer Screening G0296 Diagnoses Nicotine dependence, cigarettes, uncomplicated F17.210
== END 2024-04-06 10:26 | disposition home or self-care (01) ==
LOC: HO.HPS 09:43
PROVIDERS: PCP Internal Medicine; Referring Provider Hospitalist; Visit Provider Physician Assistant Medical
DX: F17.210 Nicotine dependence, cigarettes, uncomplicated (principal)
CPT/HCPCS: G0296

== ENCOUNTER 2024-04-06 10:13 | Outpatient (REF) | payer MEDICARE, SELFPAY | END 2024-04-06 10:14 | disposition home or self-care (01) | LOC: HO.CT 10:13 | PROVIDERS: PCP Internal Medicine; Visit Provider Physician Assistant Medical | DX: Z12.2 Encounter for screening for malignant neoplasm of respiratory organs (principal); F17.210 Nicotine dependence, cigarettes, uncomplicated | CPT/HCPCS: 71271; G0296 ==

== ENCOUNTER 2024-06-26 11:12 | Outpatient (AMB) | payer MEDICARE, SELFPAY ==
--- NOTE | 2024-06-26 11:50 | MHC.PC.OV ---
Vital Signs 06/26/24 11:51 Height 5 ft 5 in Weight 195 lb BMI 32.4 BP 136/80 Blood Pressure Location Lt brachial Position Sitting Pulse 81 Pulse Source Pulse Oximeter Pulse Oximetry (%) 95 Oxygen Delivery Method Room Air Intake Visit Reasons: Referral Colonoscopy Intake Note: Pt is here today discuss colonoscopy referral Allergies No Known Allergies Allergy (Verified 06/26/24 12:08) Medication List - Last Reconciled 06/26/24 by Kaley Vasquez MD ascorbic acid (vitamin C) 500 mg PO DAILY cholecalciferol (vitamin D3) 50 mcg PO DAILY magnesium 250 mg PO DAILY mecobalamin (vitamin B12) 1,000 mcg sublingual DAILY venlafaxine ER 75 mg PO DAILY zinc gluconate 50 mg PO DAILY Tobacco use date assessed: 06/26/24 Fall risk assessment: No Falls in past year Last assessed Fall Risk: 06/26/24 Dental Screening Dental Screen Date: 06/26/24 Did you have a dental visit in the last 12 months?: Yes Did you have a dental problem in the last 6 months where you did not have access to dental care?: Yes Was dental information given to patient?: Patient has dentist HPI Referral Colonoscopy HPI Details 74-year-old lady here today complaining of increasing frequency of episodes of constipation and gassiness , last colonoscopy was at 50 years old, per patient. Requests referral to GI Clinic for a repeat colonoscopy screening. She also has been complaining of frequent urination , goes after eating and every hour , it seems . No dysuria or incontinence reported. drinks only 2 cups coffeee daily PFSH Medical History Frequent urination Colon cancer screening Nicotine dependence, cigarettes, uncomplicated Chronic cough Phlegm in throat Dyspepsia History of COVID-19 Mild cognitive impairment Psychogenic polydipsia Anxiety and depression DUB (dysfunctional uterine bleeding) Surgical History History of excision of lesion History of carpal tunnel release of both wrists History of partial hysterectomy Family History Other Adopted Social History Housing: Condominium Patient Tobacco Use Status: Current everyday Tobacco user Cigarette Packs Per Day: 1 Cigarettes Per Day: 20 Years Smoked: (onset 40yo, 1ppd x 33yrs, 30pyh) e-Cigarette/Vaping Use: Never Used Second Hand Smoke Exposure: Yes service: No Current occupational status: retired Cognitive needs: No Hearing needs: No Vision needs: Yes Questionnaire PHQ-9 Over the last 2 weeks, how often have you been bothered by any of the following problems? 1. Little interest or pleasure in doing things: not at all 2. Feeling down, depressed, or hopeless: not at all 3. Trouble falling or staying asleep, or sleeping too much: not at all 4. Feeling tired or having little energy: several days 5. Poor appetite or overeating: not at all 6. Feeling bad about yourself - or that you are a failure or have let yourself or your family down: not at all 7. Trouble concentrating on things, such as reading the newspaper or watching television: not at all 8. Moving or speaking so slowly that other people could have noticed. Or the opposite - being so fidgety or restless that you have been moving around a lot more than usual: not at all 9. Thoughts that you would be better off or of hurting yourself in some way: not at all Total score: 1 Depression Screening Interpretation: Negative Depression Screening Done: Yes 87202 - PHQ-9 Billing: Yes Source: Developed by Drs. Lance Cox, Teena Juárez, Kwan Grove and colleagues, with an educational susana from [employer]. Thrive Questionnaire Date Thrive assessed: 06/19/24 I am a: Patient What is your living situation today?: I have a steady place to live Within the past 12 months, did the food you bought not last and you didn't have the money to get more?: Never true Within the past 12 months, did you worry whether your food would run out before you got money to buy more?: Never true Do you have trouble paying for medicines?: No Do you have trouble getting transportation to medical appointments?: No Do you have trouble paying your heating and electricity bill?: No Do you have trouble taking care of your child, family member or friend?: No Do you have trouble with day-to-day activities such as bathing, preparing meals, shopping, managing finances, etc.?: No Are you currently unemployed and looking for a job?: No Are you interested in more education?: No Please select the resources that you would like help with: None Currently or been in a relationship where the following occur: No concerns reported THRIVE Score: 0 AUDIT C Alcohol Use Questionnaire (AUDIT-C) 1. How often do you have a drink containing alcohol?: Monthly or less 2. How many drinks containing alcohol do you have on a typical day when you are drinking?: 1 or 2 3. How often do you have six or more drinks on one occasion?: Never Total Score: 1 LEONARDO-7 AMB Questionnaire LEONARDO-7 Date LEONARDO - 7 assessed: 02/10/23 Feeling nervous, anxious, or on edge: 0 = Not at all Not being able to stop or control worryin = Not at all Worrying too much about different things: 0 = Not at all Trouble relaxin = Not at all Being so restless that it is hard to sit still: 0 = Not at all Becoming easily annoyed or irritable: 0 = Not at all Feeling afraid as if something awful might happen: 0 = Not at all Total LEONARDO-7 score (0-4 normal; 5-9 mild; 10-14 moderate; 15-21 severe): 0 Source: Developed by Drs. Lance Cox, Teena Juárez, Kwan Grove and colleagues, with an educational susana from [employer]. LEONARDO-7 Assessment Billing LEONARDO-7 Assessment Tool: LEONARDO-7 Assessment 62731 Review of Systems Const All systems reviewed & are unremarkable except as noted in HPI and below Physical exam (Primary Care) Vital Signs: Last Vital Signs Pulse 81 06/26/24 11:51 BP 136/80 06/26/24 11:51 Pulse Ox 95 06/26/24 11:51 Oxygen Delivery Method Room Air 06/26/24 11:51 BMI result Body Mass Index 32.4 Tobacco/Smoking Status: Tobacco use Status Tobacco use date assessed 06/26/24 06/26/24 11:56 Patient Tobacco Use Status Current everyday Tobacco 06/26/24 11:56 e-Cigarette/Vaping Use Never Used 06/26/24 11:56 PHQ-9: PHQ-9 Score PHQ-9: Total score 1 06/26/24 12:18 Depression Screening Interpretation: Negative Thrive Assessment: Date of Thrive Assessment Date Thrive assessed 06/19/24 06/26/24 11:56 Currently or been in a relationship where the following occur: No concerns reported Const Other: Alert oriented x3, no acute distress noted, ambulatory normal gait Neck Neck: Yes full ROM, Yes no lymphadenopathy and Yes supple Resp Effort & Inspection: normal respiratory effort and able to speak in complete sentences Auscultation: clear to auscultation bilaterally GI Palpation (GI): Soft to palpation, nontender, no guarding and no masses Auscultation: normal bowel sounds General: Yes no CVA tenderness Back/Spine/Pelvis Back: no CVA tenderness Coding Level of Care Code Est Pt Level 4 (26947) Diagnoses Colon cancer screening Z12.11 Frequent urination R35.0 Additional Codes PHQ-9 - 51085 - PHQ-9 Billing: Yes ([id number]) LEONARDO-7 Assessment Billing - LEONARDO-7 Assessment Tool: LEONARDO-7 Assessment 07372 ([id number]) Assessment & Plan Assessment & Plan (1) Colon cancer screening: Code(s): Z12.11 - Encounter for screening for malignant neoplasm of colon Category: Medical Plan: GI consult obtained for her colon cancer screening (2) Frequent urination: Code(s): R35.0 - Frequency of micturition Category: Medical Plan: Urology consult obtained Orders: Referrals Gastroenterology Referral Z12.11 - Encounter for screening for malignant neoplasm of colon Urology Referral R35.0 - Frequency of micturition
[2024-06-26 11:51] VITALS: BP 136/80; PULSE 81; O2SAT 95; BMI 32.4
--- OUTSIDE RECORDS SUMMARY | 2024-06-26 12:55 | XMS_ITS | Clinical Summary ---
Author Organization [facility] it Address [address] [place] [address] Care Team Providers Care Whipper Name Role Phone Keya Sahu MD Primary Care Provider Surgical History Surgery Date Site/Laterality Comments CARPAL TUNNEL RELEASE Bilateral PROCEDURE: DC NEUROPLASTY &/TRANSPOS MEDIAN NRV CARPAL TUNNE PARTIAL HYSTERECTOMY PROCEDURE: DC SUPRACERVICAL ABDL HYSTER W/WO RMVL TUBE OVARY OTHER SURGICAL HISTORY PROCEDURE: ---- OTHER ----; COMMENT: MOHS surgery, was malignant Medical History Medical History Date Comments B12 deficiency 05/05/2018 DX:B12 deficienc y Tobacco abuse 05/05/2018 DX:Tobacco abuse ; COMMENT: Started age 50 Obesity (BMI 30-39.9) 05/05/2018 DX:Obesity (BMI 30-39.9) Neuropathy 08/31/2018 DX:Neuropathy; C OMMENT: Left leg Recurrent major depressive d isorder ([facility]) 05/13/2016 DX:Recurrent major depressiv e disorder ([facility]) Generalized anxiety disorder 09/14/2016 DX: Generalized anxiety disorder Family History Medical History Relation Name Comments Other: Adopted Father Other: Adopted Mother Relation Name Status Comments Father Mother Social History Tobacco Use Types Packs/Day Years Used Date Smoking Tobacco: Every Day Cigarettes Smokeless Tobacco: Never Alcohol Use Standard Drinks/Week Comments Yes 0 (1 standard drink = 0.6 oz pur e alcohol) Sex and Gender Information Value Date Recorded Sex Assigned at Not on file Gender Identity Not on file Sexual Orientation Not on file Obstetrics History Plan of Treatment Health Maintenance Due Date Last Done Comments Breast Cancer Screening 1950 Zoster Vaccines (2 of 3) 05/24/2014 03/29/2014 Pneumococcal Vaccine: 65+ Years (3 of 3 - PPSV23 or PCV20) 05/07/2019 06/26/2015, 05/07/2014 Cholesterol Screening (Lipid Panel) 05/08/2022 Colorectal Cancer Screening: Colonoscopy 05/08/2022 Depression Screening 05/08/2022 Falls Risk Assessment 05/08/2022 Hepatitis C Screening 05/08/2022 Social Influencers of Health Screening 05/08/2022 COVID-19 Vaccine ( season) 2024 Influenza Vaccine (#1) 2024 , 03/12/2021, 02/01/2019, Additional history exists RSV Immunization Patients 60+ Years Old (1 - 1-dose 75+ series) 2025 DTaP,Tdap,and Td Vaccines (3 - Td or Tdap) 09/14/2028 09/14/2018, 01/31/2008 Osteoporosis Screening (Bone Density Screening) 04/01/2031 04/01/2021 HIB Vaccines Aged Out No longer eligi ble based on patient's age to complete this topic HPV Vaccines Aged Out No longer eligi ble based on patient's age to complete this topic Hepatitis A Vaccines Aged Out No long er eligible based on patient's age to complete this topic Hepatitis B Vaccines Aged Out No long er eligible based on patient's age to complete this topic IPV Vaccines Aged Out No longer eligi ble based on patient's age to complete this topic MMR Vaccines Aged Out No longer eligi ble based on patient's age to complete this topic Meningococcal ACWY Vaccine Aged Out N o longer eligible based on patient's age to complete this topic RSV Immunization Patients Under 20 months Aged Out No longer eligible based on patient's age to complete this topic Varicella Vaccines Aged Out No longer eligible based on patient's age to complete this topic Procedures Procedure Name Priority Date/Time Associated Diagnosis Comments DXA BONE DENSITY STUDY 1+ SITS AXIAL SKEL Routine 04/01/2021 2:58 PM EDT Encounter for screening for osteoporosis from Last 3 Months or Most Recently Relevant to Health Maintenance Results * DXA BONE DENSITY STUDY 1+ SITS AXIAL SKEL (04/01/2021 2:58 PM EDT) Anatomical Region Laterality Modality Bone Densitometr y 01/30/2021 10:1 6 AM EDT Narrative 04/01/2021 3:25 PM EDT BONE DENSITY ? Lumbar Spine T-score is +0.8 ?? (SD relative to 20-29 y/o adult) Z-score is +2.9 ??(SD relative to age matched peers) This is normal by criteria defined by the WHO. Left Hip T-score is +0.1 Z-score is +2.0 This is normal by criteria defined by the WHO. Impression: Based on the World Health Organization criteria, Jimena Ly should be classified as having normal bone density. The [facility] Department of Internal Medicine recommends using National Osteoporosis Foundation (NOF) guidelines in treatment decisions related to osteoporosis. NOF guidelines suggest considering treatment for postmenopausal women and men aged 50 or older presenting with the following: History of hip or vertebral fracture. T-score less than or equal to -2.5 (DXA) at the femoral neck, total hip, or spine, after appropriate evaluation to exclude secondary causes. Low bone mass (T-score between -1.0 and -2.5 at the femoral neck or spine) AND a 10-year probability of a hip fracture greater than or equal to 3% OR a 10-year probability of a major osteoporosis-related fracture greater than or equal to 20% based on the [place]-adapted WHO algorithm Please note that all treatment decisions require clinical judgment and consideration of individual patient factors, including patient preferences, co-morbidities, previous drug use, risk factors not captured in the FRAX model (e.g., frailty, falls, vitamin D deficiency, increased bone turnover, interval significant decline in bone density) and possible under- or over-estimation of fracture risk by FRAX. Procedure Note Rob Rudd MD - 05/25/2022 BONE DENSITY Lumbar Spine T-score is +0.8 (SD relative to 20-29 y/o adult) Z-score is +2.9 (SD relative to age matched peers) This is normal by criteria defined by the WHO. Left Hip T-score is +0.1 Z-score is +2.0 This is normal by criteria defined by the WHO. Impression: Based on the World Health Organization criteria, Jimena Ly should beclassified as having normal bone density. The [facility] Department of Internal Medicine recommendsusing National Osteoporosis Foundation (NOF) guidelines in treatmentdecisions related to osteoporosis. NOF guidelines suggest consideringtreatment for postmenopausal women and men aged 50 or older presentingwith the following: History of hip or vertebral fracture. T-score less than or equal to -2.5 (DXA) at the femoral neck, total hip,or spine, after appropriate evaluation to exclude secondary causes. Low bone mass (T-score between -1.0 and -2.5 at the femoral neck or spine)AND a 10-year probability of a hip fracture greater than or equal to 3% ORa 10-year probability of a major osteoporosis-related fracture greaterthan or equal to 20% based on the [place]-adapted WHO algorithm Please note that all treatment decisions require clinical judgment andconsideration of individual patient factors, including patientpreferences, co-morbidities, previous drug use, risk factors not capturedin the FRAX model (e.g., frailty, falls, vitamin D deficiency, increasedbone turnover, interval significant decline in bone density) and possibleunder- or over-estimation of fracture risk by FRAX. 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
--- OUTSIDE RECORDS SUMMARY | 2024-06-26 12:55 | XMS_ITS | Clinical Summary ---
Author Organization [facility] Facility Address [address] [address] Care Team Providers Care Copy Room Technician Name Role Phone Unavailable Primary Care Provider Unavailabl e Social History Tobacco Use Types Packs/Day Years Used Date Smoking Tobacco: Never Assessed Comments Unknown Sex and Gender Information Value Date Recorded Sex Assigned at Not on file Legal Sex Female 8:17 AM EDT Gender Identity Not on file Sexual Orientation Not on file Plan of Treatment Health Maintenance Due Date Last Done Comments Breast Cancer Screening 1950 Colorectal Cancer Screening: Annual FOBT 1999 Colorectal Cancer Screening: Colonoscopy 1999 Colorectal Cancer Screening: Sigmoidoscopy 1999 Pneumococcal Vaccine: 65+ Years (3 of 3 - PPSV23 or PCV20) 06/26/2020 06/26/2015, 05/07/2014 Influenza Vaccine (#1) 2024 Hepatitis B Vaccine Aged Out No longe r eligible based on patient's age to complete this topic Insurance [facility] MEDICARE [facility]
--- OUTSIDE RECORDS SUMMARY | 2024-06-26 12:55 | XMS_ITS | Clinical Summary ---
Author Organization [facility] Address [address] [place] [address] Care Team Providers Care Chemical Operations Specialist Name Role Phone Unavailable Primary Care Provider Unavailabl e Social History Tobacco Use Types Packs/Day Years Used Date Smoking Tobacco: Never Assessed Sex and Gender Information Value Date Recorded Sex Assigned at Not on file Gender Identity Not on file Sexual Orientation Not on file Plan of Treatment Health Maintenance Due Date Last Done Comments Hepatitis C Virus Screening 1950 DTaP/Tdap/Td Vaccines (1 - Tdap) 1969 Pneumococcal Vaccines 50+ (1 of 1 - PCV) 2000 Zoster (Shingles) Vaccine (1 of 2) 2000 COVID-19 Vaccine ( - 2023-2 5 season) 2024 RSV Vaccine 60 years and old er and Patients (1 - 1-dose 75+ series) 2025 Hepatitis B Vaccines Aged Out No long er eligible based on patient's age to complete this topic
== END 2024-06-26 13:54 | disposition home or self-care (01) ==
PROVIDERS: PCP Internal Medicine; Visit Provider Internal Medicine
DX: Z12.11 Encounter for screening for malignant neoplasm of colon (principal); R35.0 Frequency of micturition

== ENCOUNTER → 2024-06-26 11:12 | Outpatient (BNVA) | payer MEDICARE, SELFPAY | PROVIDERS: PCP Internal Medicine; Visit Provider Internal Medicine | DX: R35.0 Frequency of micturition (principal) | CPT/HCPCS: 96127; 99212 ==

== ENCOUNTER 2024-09-26 07:27 | Outpatient (REF) | payer MEDICARE, SELFPAY ==
--- OUTSIDE RECORDS SUMMARY | 2024-09-26 07:30 | XMS_ITS | Clinical Summary ---
Author Organization [facility] it Address [address] [place] [address] Care Team Providers Care Adjunct Psychology Faculty Member Name Role Phone Keya Sahu MD Primary Care Provider Surgical History Surgery Date Site/Laterality Comments CARPAL TUNNEL RELEASE Bilateral PROCEDURE: ID NEUROPLASTY &/TRANSPOS MEDIAN NRV CARPAL TUNNE PARTIAL HYSTERECTOMY PROCEDURE: ID SUPRACERVICAL ABDL HYSTER W/WO RMVL TUBE OVARY OTHER SURGICAL HISTORY PROCEDURE: ---- OTHER ----; COMMENT: MOHS surgery, was malignant Medical History Medical History Date Comments B12 deficiency 05/05/2018 DX:B12 deficienc y Tobacco abuse 05/05/2018 DX:Tobacco abuse ; COMMENT: Started age 50 Obesity (BMI 30-39.9) 05/05/2018 DX:Obesity (BMI 30-39.9) Neuropathy 08/31/2018 DX:Neuropathy; C OMMENT: Left leg Recurrent major depressive d isorder ([facility]/HCC V24) 05/13/2016 DX:Recurrent major depressiv e disorder ([facility]) Generalized anxiety disorder 09/14/2016 DX: Generalized anxiety disorder Family History Medical History Relation Name Comments Other: Adopted Father Other: Adopted Mother Relation Name Status Comments Father Mother Social History Tobacco Use Types Packs/Day Years Used Date Smoking Tobacco: Every Day Cigarettes Smokeless Tobacco: Never Alcohol Use Standard Drinks/Week Comments Yes 0 (1 standard drink = 0.6 oz pur e alcohol) Comments Unknown Sex and Gender Information Value Date Recorded Sex Assigned at Not on file Legal Sex Female 6:36 PM EST Gender Identity Not on file Sexual Orientation Not on file Obstetrics History Plan of Treatment Health Maintenance Due Date Last Done Comments Breast Cancer Screening 1950 Zoster Vaccines (2 of 3) 05/24/2014 03/29/2014 Pneumococcal Vaccine: 50+ Years (3 of 3 - PCV20 or PCV21) 06/26/2020 06/26/2015, 05/07/2014 Cholesterol Screening (Lipid Panel) 05/08/2022 Colorectal Cancer Screening: Colonoscopy 05/08/2022 Depression Screening 05/08/2022 Falls Risk Assessment 05/08/2022 Hepatitis C Screening 05/08/2022 Social Influencers of Health Screening 05/08/2022 COVID-19 Vaccine ( - season) 2024 Influenza Vaccine (Season Ended) 2025 03/20/2022, 03/12/2021, 02/01/2019, Additional history exists RSV Immunization Adult Patients (1 - 1-dose 75+ series) 2025 DTaP,Tdap,and [...] patient's age to complete this topic Meningococcal B Vaccine Aged Out No l onger eligible based on patient's age to complete [...] classified as having normal bone density. The [facility] Department of Internal Medicine recommends using National [...] beclassified as having normal bone density. The [facility] Department of Internal Medicine recommendsusing National Osteoporosis [...] fracture risk by FRAX. 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
--- OUTSIDE RECORDS SUMMARY | 2024-09-26 07:30 | XMS_ITS | Patient Health Record ---
[facility] Address [address] [place] [address] Care Team Providers Care Oil Producer Name Role Phone Pedro RAMOS, Kaley Asher Primary Care Provider Un available Kemal Brown Unavailable [phone] Reason For Referral No Information Medications Medication SIG (Take, Route, Frequency, Duration) Notes Start Date End Date Status Advil 200 MG 1 capsule as needed Orally every 6 hrs 05/16/2013 Active Advil Active LORazepam Active Problems Problem Type SNOMED Code ICD Code Onset Dates Problem Status W/U Status Risk Notes Problem Neuralgia - Neuritis (729.2) Active confirmed Problem Congenital pes planus (02247652) Flat Foot, Congenital (754.61) Active confirmed Problem Pain in limb (29010645) Pain in Limb (729.5) Active confirmed Plan Of Treatment No Information Insurance Providers Payer Name Payer Address Payer Phone Subscriber Number Group Number Insured Name Patient Relationship to Insured Coverage Start Date Coverage End Date Medicare National Govt Svcs Inc [address] [place] [address] [phone] [id number] Jimena Ly Self - patient is the insured AARP Secondary to Medicare [address] [place] [address] [phone] [id number] Jimena Ly Self - patient is the insured Medical (General) History Medical History History ICD Code Arthritis angina Chicken pox Surgical History Surgery Date(Month/Year) carpal tunnel-both hands
--- OUTSIDE RECORDS SUMMARY | 2024-09-26 07:30 | XMS_ITS | Clinical Summary ---
Author Organization [facility] Facility Address [address] [address] Care Team Providers Care Casual Shoe Inspector Name Role Phone Unavailable Primary Care Provider [...] Colorectal Cancer Screening: Sigmoidoscopy 1999 Pneumococcal Vaccine: 50+ Years (3 of 3 - PCV20 or PCV21) 06/26/2020 06/26/2015, 05/07/2014 Influenza Vaccine (Season Ended) 2025 Hepatitis B Vaccine Aged Out No longe r eligible based on patient's age to complete this topic Insurance Medicare [facility] Medicare [facility] Member Subscriber Plan / Payer (Ef fective 2021-Present) Name:Jimena Ly Relation to Subscriber:Self Name:Jimena Ly Payer ID:[id number] (NAIC) Group ID:Not on file Type:Not on file Address: [address] [place] [id number]
--- OUTSIDE RECORDS SUMMARY | 2024-09-26 07:30 | XMS_ITS | Clinical Summary ---
Author Organization [facility] Address [address] [place] [address] Care Team Providers Care Underwater Trapper Name Role Phone Unavailable Primary Care Provider Unavailabl e Social History Tobacco Use Types Packs/Day Years Used Date Smoking Tobacco: Never Assessed Comments Unknown Sex and Gender Information Value Date Recorded Sex Assigned at Not on file Legal Sex Female 8:27 AM EST Gender Identity Not on file Sexual [...]
[2024-09-26 10:23] LABS: MANUAL DIFF FLAG NO
[2024-09-26 10:28] LABS: Basophils Percent Auto 0.4 % (0-2); Eosinophils Absolute Auto 0.2 X10*3/uL (0.0-0.4); Eosinophils Percent Auto 1.9 % (0-4); Hematocrit 39.1 % (37.0-47.0); Hemoglobin 13.1 g/dl (12.0-16.0); Imm Gran Abs Auto 0.07 X10*3/uL (0.00-0.03); Imm Gran Pct Auto 0.8 % (0.0-0.4); Lymphocytes Absolute Auto 1.8 X10*3/uL (1.2-4.9); Lymphocytes Percent Auto 21.7 % (20-40); Mean Corpuscular HGB Conc 33.5 g/dl (31.0-35.0); Mean Corpuscular Hemoglobin 30.2 pg (27.0-33.0); Mean Corpuscular Volume 90.1 fL (80.0-98.0); Mean Platelet Volume 9.6 fL (9.4-12.3); Monocytes Absolute Auto 1.1 X10*3/uL (0.1-1.2); Neutrophils Absolute Auto 5.2 x10*3/uL (2.0-8.3); Neutrophils Percent Auto 62.2 % (45-73); Platelet Count 298 X10*3/uL (160-400); Red Blood Count 4.34 X10*6/uL (4.20-5.50); Red Cell Distribution Width 12.9 % (11.0-16.0); White Blood Count 8.3 X10*3/uL (4.8-10.8)
[2024-09-26 11:05] LABS: Alanine Aminotransferase 25 U/L (0-31); Anion Gap 12 (12-20); Aspartate Amino Transferase 29 U/L (5-31); Blood Urea Nitrogen 12 mg/dL (9-16); Carbon Dioxide 26 mmol/L (22-29); Chloride 104 mmol/L (96-108); Estimated Glomerular Filt Rate > 60; Glucose Fasting 91 mg/dL (60-99); Potassium 4.2 mmol/L (3.3-5.1); Sodium 138 mmol/L (135-145)
[2024-09-26 11:22] LABS: TSH reflex Free T4 1.35 uIU/mL (0.32-4.0); Vitamin D 25-OH Total 53.3 ng/mL (>30)
[2024-09-26 11:33] LABS: Folate 6.8 ng/mL (> or = 4.0); Vitamin B12 737 pg/mL (200-900)
== END 2024-09-26 07:28 | disposition home or self-care (01) ==
LOC: HO.HMGCLDS 07:27
PROVIDERS: PCP Internal Medicine; Visit Provider Internal Medicine
DX: R05.3 Chronic cough (principal); F41.9 Anxiety disorder, unspecified; F32.A Depression, unspecified; R10.13 Epigastric pain; R53.83 Other fatigue; Z78.0 Asymptomatic menopausal state
CPT/HCPCS: 36415; 80048; 82306; 82607; 82746; 84443; 84450; 84460; 85025

== ENCOUNTER 2024-11-21 10:14 | Outpatient (AMB) | payer MEDICARE, SELFPAY ==
--- NOTE | 2024-11-21 10:16 | A.OFFVIS_ITS ---
Vital Signs 3 11/21/24 10:40 Height 5 ft 5 in Weight 180 lb BMI 30.0 BP 128/60 Blood Pressure Location Rt brachial Position Sitting Pulse 88 Pulse Source Pulse Oximeter Pulse Oximetry (%) 96 Oxygen Delivery Method Room Air Intake Visit Reasons: Colonoscopy Screening Intake Note: New pt for eval of constipation, gas, recall colo. last colonoscopy was at 50 years old, per patient. CC; C.O frequent gas, constipation, and bloating w/ RUQ pain intermittently. Pt reports having 3-4 days in between BMs without any relief from stool softeners or laxatives. Pt denies any evidence of hemorrhoids at this time but does report straining at stool. Pt does report having previous complication of colo due to twisting of their colon per previous hysterectomy? This, according to MD that did her previous colo @ age 50. Ediscovery Project Manager Required: No Accompanied by: Self / Same As Patient Allergies No Known Allergies Allergy (Verified 11/29/24 13:39) HPI HPI Colonoscopy Screening: Details: 71-year-old female here for preprocedural meeting to discuss a screening colonoscopy. She is referred by Kaley Vasquez of [facility] primary care. PMX Smoker Anxiety * SURGICAL HISTORY Bilateral carpal tunnel release Hysterectomy Melanoma removal forehead * ALLERGIES: NKDA * Spinal Kinetics LABS: Laboratory Tests 09/26/24 07:32 WBC 8.3 Hgb 13.1 Hct 39.1 Plt Count 298 Estimated GFR > 60 AST 29 ALT 25 TSH 1.35 TODAY'S VISIT She had a prior colonoscopy when she was 55, she was only told my colon was twisted and they had a hard time passing the scope. She is really struggling with CIC. She has taken fiber, miralalx, Smooth Move, colace but they no longer work. She passes a lot of gas. She has had this for a long time, but it has greatly worsened over the past 5 years. She will go days w/o going, and she feels like it comes to a certain point near the rectum and it does now want to come down. She will strain on the toilet and the stools are very hard and at times like rabbit pellets. Her TSH is okay, only confounding medication is Vit D. She has a lot of borborygmus. ? rectocele??. She denies any cardiac or respiratory problems No anes or sed problems. No ID problems. She is adopted so FHX of crc or polyps is unknown. Will get small bowel follow through to determine anatomy of colon. Return office visit in 3 weeks [facility] Medical History Colon cancer screening Frequent urination Nicotine dependence, cigarettes, uncomplicated Chronic cough Phlegm in throat Dyspepsia History of COVID-19 Mild cognitive impairment Psychogenic polydipsia Anxiety and depression DUB (dysfunctional uterine bleeding) Surgical History History of excision of lesion History of carpal tunnel release of both wrists History of partial hysterectomy Family History Other [facility]ed [facility] Tobacco Use Status: Current everyday Tobacco user Cigarette Packs Per Day: 1 Cigarettes Per Day: 20 Years Smoked: (onset 40yo, 1ppd x 33yrs, 30pyh) e-Cigarette/Vaping Use: Never Used Second Hand Smoke Exposure: Yes service: No Current occupational status: retired Cognitive needs: No Hearing needs: No Vision needs: Yes Review of Systems Const Denies fatigue, Denies fever(s), Denies night sweats, Denies poor appetite and Denies weight loss ENT Reports Normal hearing present, Denies dysphagia, Denies odynophagia, Denies throat swelling and Denies tongue swelling Card Reports no additional complaints Resp Reports no additional complaints GI Details: Denies abdominal pain, Denies melena, Denies bloating, Denies hematochezia, Reports constipation, Denies GI cramping, Denies dysphagia, Denies excessive flatus, Denies early satiety, Denies heartburn, Denies diarrhea, Denies nausea, Denies odynophagia, Denies vomiting and Denies hematemesis Skin/Breast Denies pruritus, Denies lesions, Denies rash and Denies jaundice Neuro Reports Normal hearing present and Denies Abnormal speech present Endo Denies fatigue Aller/Immun Denies throat swelling and Denies tongue swelling Physical Exam Vital Signs: Last Vital Signs Pulse 88 11/21/24 10:40 BP 128/60 11/21/24 10:40 Pulse Ox 96 11/21/24 10:40 Oxygen Delivery Method Room Air 11/21/24 10:40 BMI result Body Mass Index 30.0 Const General: cooperative, no acute distress, well developed and well groomed Nutritional Appearance: well nourished and obese Orientation/consciousness: oriented to person, oriented to place and oriented to time Limitations: No language barrier HEENT Head: Yes normocephalic and Yes atraumatic Eyes General: appearance normal, both eyes and all related structures Pupils: Equal, round and reactive pupils present Neck Neck: Yes normal visual inspection and Yes no lymphadenopathy Thyroid: Thyroid normal Resp Effort & Inspection: normal respiratory effort and able to speak in complete sentences Auscultation: clear to auscultation bilaterally Cardio Rate: regular rate Rhythm: regular rhythm Heart sounds: Normal, physiologic split S2 sound present Peripheral pulses: radial pulses present and posterior tibial pulses present GI Inspection: No distended, Yes Abdominal panniculus present and Yes obesity Palpation (GI): Soft to palpation, nontender, no guarding, not rigid and No hepatosplenomegaly present Percussion: Yes normal to percussion Auscultation: normal bowel sounds Rectal Exam - Female: deferred Abdomen image: 2 1. surgical scar Skin General skin exam: no rashes or lesions noted, turgor normal, skin not dry, no jaundice, No spider nevi and no striae Rashes: no rashes Nails: normal Neuro General: oriented to person, oriented to place and oriented to time Cranial nerves: Yes Equal, round and reactive pupils present and Yes Normal hearing present Speech: No Abnormal speech present Extrem General: Yes normal to inspection, No clubbing, No cyanosis and No edema Psych Appearance: grossly normal and well kempt Mental Status: mental status grossly normal Speech and movement: Normal speech and movement present Affect: normal affect Attitude: cooperative Thought process: Normal thought process present and not confabulating Thought content: Normal thought content present Insight: Good insight present (Psych) Judgement: Good judgement present (Psych) Assessment & Plan Assessment & Plan (1) Pre-op examination: Code(s): Z01.818 - Encounter for other preprocedural examination Category: Medical (2) Chronic idiopathic constipation: Code(s): K59.04 - Chronic idiopathic constipation Category: Medical Plan She had a prior colonoscopy when she was 55, she was only told my colon was twisted and they had a hard time passing the scope. She is really struggling with CIC. She has taken fiber, miralalx, Smooth Move, colace but they no longer work. She passes a lot of gas. She has had this for a long time, but it has greatly worsened over the past 5 years. She will go days w/o going, and she feels like it comes to a certain point near the rectum and it does now want to come down. She will strain on the toilet and the stools are very hard and at times like rabbit pellets. Her TSH is okay, only confounding medication is Vit D. She has a lot of borborygmus. ? rectocele??. She denies any cardiac or respiratory problems No anes or sed problems. No ID problems. She is adopted so FHX of crc or polyps is unknown. Will get small bowel follow through to determine anatomy of colon. Return office visit in 3 weeks Orders: Orders 2 Colonoscopy - GI Use Only 11/21/24 Z01.818 - Encounter for other preprocedural examination FL barium swallow w SBFT 11/21/24 K59.04 - Chronic idiopathic constipation Medications: New 2 sodium,potassium,mag sulfates 17.5-3.13-1.6 gram (Suprep Bowel Prep Kit) 480 mL orally; FOR COLONOSCOPY PREP 354 mL 0RF linaclotide (Linzess) Take first thing in the morning with a full glass of water. 145 mcg PO QAM 30 caps 3RF K58.1 - Irritable bowel syndrome with constipation Coding Level of Care Code New Pt Level 3 (81198) Diagnoses Pre-op examination Z01.818 Chronic idiopathic constipation K59.04
[2024-11-21 10:40] VITALS: BP 128/60; PULSE 88; O2SAT 96
--- OUTSIDE RECORDS SUMMARY | 2024-11-21 11:36 | XMS_ITS | Clinical Summary ---
Author Organization [facility] Facility Address [address] [address] Care Team Providers Care Yarn Weigher Name Role Phone Unavailable Primary Care Provider [...] age to complete this topic Insurance Medicare [facility] Medicare [facility] Member Subscriber Plan / Payer (Ef fective 2021-Present) Name:Jimena Ly Relation to Subscriber:Self Name:Jimena Ly Payer ID:[id number] (NAIC) Group ID:Not on file Type:Not on file Address: [address] [place] [id number]
== END 2024-11-21 11:23 | disposition home or self-care (01) ==
LOC: HO.HGI 10:15
PROVIDERS: PCP Internal Medicine; Visit Provider Nurse Practitioner
DX: K59.04 Chronic idiopathic constipation (principal)
CPT/HCPCS: 99203

== ENCOUNTER → 2024-11-21 10:14 | Outpatient (BNVA) | payer MEDICARE, SELFPAY | PROVIDERS: PCP Internal Medicine; Visit Provider Nurse Practitioner | DX: Z01.818 Encounter for other preprocedural examination (principal); K59.04 Chronic idiopathic constipation | CPT/HCPCS: 99202 ==

== ENCOUNTER 2024-11-29 12:38 | Outpatient (AMB) | payer MEDICARE, SELFPAY ==
--- NOTE | 2024-11-29 13:01 | MHC.OFFVIS ---
Intake Visit Reasons: urinary frequency Intake Note: New Patient is present for urinary frequency Urology Rx:none PVR:20 ml's Blood Thinners:none Computerized Table Cutter Required: No Accompanied by: Self / Same As Patient Allergies No Known Allergies Allergy (Verified 11/29/24 13:39) Medication List - Last Reconciled 11/29/24 by TAYLER Taylor cholecalciferol (vitamin D3) 50 mcg PO DAILY mecobalamin (vitamin B12) 1,000 mcg sublingual DAILY venlafaxine ER 75 mg PO DAILY zinc gluconate 50 mg PO DAILY HPI Comments Details: Jimena is a very pleasant 74-year-old female patient of Dr. Vasquez. She has a past medical history of urinary frequency, nicotine dependence. Chronic cough, dyspepsia, mild cognitive impairment, psychogenic polydipsia, anxiety, depression, and dysfunctional uterine bleeding. In discussion with the patient today she reports having followed up with her PCP earlier this year in discussing ongoing issue she had been experiencing. She reports noting over the last 5-7 months she has been experiencing episodes of urinary frequency. She describes episodes where she is involved in bathroom planning. She does have a previous history of a hysterectomy at the age of [age] years old. She denies incontinence, nocturia, hematuria, dysuria, foul smelling urine, changes to urinary stream, flank pain, fever, and or chills. She does endorse to drinking 3 cups of coffee a day. We did discussed potential causes of urinary frequency as well as further treatment options and risks and benefits of these treatment options. She reports also following up with Gastroenterology here at [place] for ongoing issues of constipation she has been experiencing. We also discussed correlation of bowel issues and urinary habits. We discussed obtaining bladder diary for further assessment evaluation. We discussed obtaining retroperitoneal ultrasound for further assessment evaluation. We discussed bladder triggers and irritants. In office urinalysis results reviewed with the patient today. PVR 20 mL. All questions were answered. She otherwise offers no other issues or concerns at this time. [facility] Medical History Colon cancer screening Frequent urination Nicotine dependence, cigarettes, uncomplicated Chronic cough Phlegm in throat Dyspepsia History of COVID-19 Mild cognitive impairment Psychogenic polydipsia Anxiety and depression DUB (dysfunctional uterine bleeding) Surgical History History of excision of lesion History of carpal tunnel release of both wrists History of partial hysterectomy Family History Other [facility]ed [facility] Tobacco Use Status: Current everyday Tobacco user Cigarette Packs Per Day: 1 Cigarettes Per Day: 20 Years Smoked: (onset 40yo, 1ppd x 33yrs, 30pyh) e-Cigarette/Vaping Use: Never Used Second Hand Smoke Exposure: Yes service: No Current occupational status: retired Cognitive needs: No Hearing needs: No Vision needs: Yes Review of Systems Const All systems reviewed & are unremarkable except as noted in HPI and below Physical Exam Const General: cooperative, healthy appearing, comfortable, no acute distress, well developed, alert and awake Orientation/consciousness: patient oriented x3 Limitations: no limitations HEENT Head: Yes normal to inspection, Yes normocephalic and Yes atraumatic Ears: hearing grossly normal bilaterally Eyes General: appearance normal, both eyes and all related structures Neck Neck: Yes normal visual inspection and Yes trachea midline Chest Chest palpation & inspection: normal inspection of the chest Resp Effort & Inspection: normal respiratory effort and able to speak in complete sentences Cardio Rate: regular rate GI Inspection: Yes normal to inspection General: Yes no CVA tenderness Back/Spine/Pelvis Back: no CVA tenderness Skin General skin exam: no rashes or lesions noted Neuro General: patient oriented x3 Extrem General: Yes normal to inspection Psych Appearance: grossly normal and well kempt Mental Status: mental status grossly normal Speech and movement: Normal speech and movement present and Clear speech present Affect: normal affect Attitude: cooperative Thought process: Normal thought process present Thought content: Normal thought content present Insight: Fair insight present (Psych) Judgement: Fair judgement present (Psych) Assessment & Plan Assessment & Plan (1) Frequent urination: Code(s): R35.0 - Frequency of micturition Category: Medical Plan In office urinalysis results reviewed with the patient today; as noted above. PVR 20 mL. Will obtain retroperitoneal ultrasound for further assessment evaluation. We discussed bladder triggers/irritants. All questions were answered. We discussed potential causes of urinary frequency as well as further treatment options and risks and benefits of these treatment options. Discussed obtaining bladder diary for further assessment evaluation. Follow-up in 1-3 months with imaging to be completed prior; or sooner with any issues, concerns, and or questions. Patient Instructions: The patient had an opportunity to ask questions regarding the treatment plan. All questions were answered. Physical exam, labs, and imaging were discussed and reviewed in detail. As well as risks, benefits, and discussion of treatment choices. No major barriers to understanding were identified. The patient expressed understanding and agreement with the above treatment plan. The patient was made aware they should contact our office by phone for worsening of their current condition, the appearance of new symptoms, or with any questions or concerns. Compliance is encouraged with any medications and follow up testing that is ordered. It is a privilege to be allowed the opportunity to participate in? your urological care.? Again, if you have any questions or concerns If you have any questions or concerns please do not hesitate to contact me. The office is [phone]. This note is constructed using voice recognition software. While every effort has been made to ensure accuracy management and budget analyst errors may have been included. Yours sincerely, TAYLER Taylor Coding Level of Care Code New Pt Level 3 (84170) Diagnoses Frequent urination R35.0
--- OUTSIDE RECORDS SUMMARY | 2024-11-29 15:01 | XMS_ITS | Patient Health Record ---
[facility] Address [address] [place] [address] Care Team Providers Care Assistant Professor Nurse Education Name Role Phone Pedro RAMOS, Kaley Asher Primary Care Provider Un available Kemal Brown Unavailable [phone] Reason For Referral No Information Medications Medication SIG (Take, Route, Frequency, Duration) Notes Start Date End Date Status Advil 200 MG 1 capsule as needed Orally every 6 hrs 05/16/2013 Active Advil Active LORazepam Active Problems Problem Type SNOMED Code ICD Code Onset Dates Problem Status W/U Status Risk Notes Problem Neuralgia - Neuritis (729.2) Active confirmed Problem Congenital pes planus (86883615) Flat Foot, Congenital (754.61) Active confirmed Problem Pain in limb (02466922) Pain in Limb (729.5) Active confirmed Plan Of Treatment No Information Insurance Providers Payer Name Payer Address Payer Phone Subscriber Number Group Number Insured Name Patient Relationship to Insured Coverage Start Date Coverage End Date Medicare National Govt Svcs Inc [address] [place] [address] [phone] [id number] Jimena Ly Self - patient is the insured AARP Secondary to Medicare [address] [place] [address] [phone] [id number] Jimena Ly Self - patient is the insured Medical (General) History Medical History History ICD Code Arthritis angina Chicken pox Surgical History Surgery Date(Month/Year) carpal tunnel-both hands
== END 2024-11-29 13:41 | disposition home or self-care (01) ==
LOC: HO.HUSH 12:39
PROVIDERS: PCP Internal Medicine; Visit Provider Nurse Practitioner Family
DX: Z13.9 Encounter for screening, unspecified (principal); R35.0 Frequency of micturition
CPT/HCPCS: 99203

== ENCOUNTER → 2024-11-29 12:38 | Outpatient (BNVA) | payer MEDICARE, SELFPAY | PROVIDERS: PCP Internal Medicine; Visit Provider Nurse Practitioner Family | DX: R35.0 Frequency of micturition (principal) | CPT/HCPCS: 51798; 81003; 99202 ==

== ENCOUNTER 2024-12-03 07:40 | Outpatient (REF) | payer MEDICARE, SELFPAY ==
--- OUTSIDE RECORDS SUMMARY | 2024-12-03 07:42 | XMS_ITS | Patient Health Record ---
[facility] Address [address] [place] [address] Care Team Providers Care Manager Card Name Role Phone Pedro RAMOS, Kaley Asher Primary Care Provider Un available Kemal Brown Unavailable [phone] Reason For Referral No Information Medications Medication SIG (Take, Route, Frequency, Duration) Notes Start Date End Date Status Advil 200 MG 1 capsule as needed Orally every 6 hrs 05/16/2013 Active Advil Active LORazepam Active Problems Problem Type SNOMED Code ICD Code Onset Dates Problem Status W/U Status Risk Notes Problem Neuralgia - Neuritis (729.2) Active confirmed Problem Congenital pes planus (00905595) Flat Foot, Congenital (754.61) Active confirmed Problem Pain in limb (81430289) Pain in Limb (729.5) Active confirmed Plan Of Treatment No Information Insurance Providers Payer Name Payer Address Payer Phone Subscriber Number Group Number Insured Name Patient Relationship to Insured Coverage Start Date Coverage End Date Medicare [employer] [address] [place] [address] [phone] [id number] Jimena Ly Self - patient is the insured A[employer] Secondary to Medicare [address] [place] [address] [id number] Jimena Ly Self - patient is the insured Medical (General) History Medical History History ICD Code Arthritis angina Chicken pox Surgical History Surgery Date(Month/Year) carpal tunnel-both hands
== END 2024-12-03 07:41 | disposition home or self-care (01) ==
LOC: HO.XRAY 07:40
PROVIDERS: PCP Internal Medicine; Visit Provider Nurse Practitioner
DX: Z13.89 Encounter for screening for other disorder (principal)